=== PATIENT | female | born 1945 | race Caucasian/White ===

== ENCOUNTER 2017-07-04 16:49 | Inpatient (IN) | payer MEDICARE ==
[~2017-07-04] VITALS: Ht 162.6 cm; Wt 65.9 kg
[~2017-07-04 16:49] MED LIST: ADV50250 IH; ALB0.5UD IH; ALBU8.5H8 INH; PANT-47 PO; PROP10TA10 PO
[2017-07-04 17:34] LABS: BASOPHILS # (AUTO) 0.1 X10'3 (0-0.2); BASOPHILS % (AUTO) 0.6 % (0-1); EOSINOPHILS % (AUTO) 0.3 % (0-6); HEMATOCRIT 22.4 % (35.0-45.0); HEMOGLOBIN 7.5 g/dl (12.0-16.0); LYMPHOCYTES # (AUTO) 2.3 X10'3 (1.1-4.8); LYMPHOCYTES % (AUTO) 21.8 % (21-51); MEAN CORPUSCULAR HEMOGLOBIN 29.5 PG (27.0-31.0); MEAN CORPUSCULAR HGB CONC 33.6 % (33.0-36.5); MEAN CORPUSCULAR VOLUME 87.9 FL (78-98); MONOCYTES # (AUTO) 0.4 X10'3 (0-0.9); MONOCYTES % (AUTO) 4.1 % (2-12); NEUTROPHILS # (AUTO) 7.6 X10'3 (1.8-7.7); NEUTROPHILS % (AUTO) 73.2 % (42-75); PLATELET COUNT 301 X10'3 (140-440); RED BLOOD COUNT 2.55 X10'6 (4.20-5.60); RED CELL DISTRIBUTION WIDTH 15.6 % (11.5-14.5); WHITE BLOOD COUNT 10.4 X10'3 (4.5-11.0)
[2017-07-04 17:45] LABS: PARTIAL THROMBOPLASTIN TIME 22 SECONDS (22-32); PROTHROMBIN TIME 10.1 SECONDS (9.0-12.0)
[2017-07-04 18:01] LABS: ALANINE AMINOTRANSFERASE 25 U/L (12-78); ALBUMIN 3.1 G/DL (3.4-5.0); ALKALINE PHOSPHATASE 52 IU/L (46-116); ANION GAP 7 (8-16); ASPARTATE AMINO TRANSFERASE 19 U/L (10-37); BILIRUBIN,TOTAL 0.3 MG/DL (0.1-1.0); BLOOD UREA NITROGEN 26 MG/DL (7-18); BUN/CREATININE RATIO 35.1 (6.6-38.0); CALCIUM 7.8 MG/DL (8.5-10.1); CHLORIDE 109 MMOL/L (99-107); CREATININE 0.74 MG/DL (0.40-0.90); GLUCOSE 118 MG/DL (70-104); SODIUM 142 MMOL/L (135-145); TOTAL CARBON DIOXIDE 26.3 MMOL/L (24-32); TOTAL PROTEIN 6.2 G/DL (6.4-8.2); eGFR 78 ML/MIN
[2017-07-04] MEDS ORDERED: pantoprazole IV 80 MG in normal saline 100ml IV soln 100 ML IV ONE (20:55)
[2017-07-04] MEDS ORDERED: ondansetron/PF 4mg/2ml inj IV ONE (20:55)
[2017-07-04] MEDS ORDERED: octreotide 100mcg/1 ml ampule IV ONE (20:55)
[2017-07-04] MEDS ORDERED: temazepam 15mg capsule PO PRN (21:00)
[2017-07-04] MEDS ORDERED: pantoprazole 40 MG vial IV ONE (21:00)
[2017-07-04] MEDS: pantoprazole 40MG/NS 100ML BAG 100 ML IV SCH (21:12)
[2017-07-04] MEDS: normal saline 1000ml 1,000 ML IV SCH (22:39)
[2017-07-04] MEDS ORDERED: ondansetron/PF 4mg/2ml inj IV PRN (22:40)
[2017-07-04] MEDS ORDERED: magnesium hydroxide 30ml (MOM) UD suspension PO PRN (22:40)
[2017-07-04] MEDS ORDERED: magnesium 4gm in 100ml NS 100 ML IV PRN (22:40)
[2017-07-04] MEDS ORDERED: magnesium Cl slow-release 64mg tablet PO PRN (22:40)
[2017-07-04] MEDS ORDERED: potassium Cl 40MEQ/NS 500ml 500 ML IV PRN ×2 (22:40)
[2017-07-04] MEDS ORDERED: acetaminophen 325mg tablet PO PRN (22:40)
[2017-07-04] MEDS ORDERED: mag hydrox/Alum hydrox/simeth 30ml oral suspension PO PRN (22:40)
[2017-07-04] MEDS ORDERED: magnesium 2GM in 50ml NS 50 ML IV PRN (22:40)
[2017-07-04] MEDS ORDERED: potassium Cl 20 mEq SR tablet PO PRN ×2 (22:40)
[2017-07-04] MEDS ORDERED: HYDROmorphone inj. 0.5 MG/0.5 ML DISP.SYRIN IV PRN ×2 (22:40)
[2017-07-04 22:53] VITALS: BP 124/60
[2017-07-04 23:08] VITALS: BP 119/64
[2017-07-05] VITALS (11 sets, daily range): BP systolic 116–145; BP diastolic 56–77
[2017-07-05] MEDS: pantoprazole 40MG/NS 100ML BAG 100 ML IV SCH ×5 (02:27→21:00)
[2017-07-05 05:00] LABS: BASOPHILS % (AUTO) 0.6 % (0-1); EOSINOPHILS # (AUTO) 0.2 X10'3 (0-0.9); EOSINOPHILS % (AUTO) 2.3 % (0-6); HEMATOCRIT 23.8 % (35.0-45.0); HEMOGLOBIN 8.2 g/dl (12.0-16.0); LYMPHOCYTES # (AUTO) 2.2 X10'3 (1.1-4.8); LYMPHOCYTES % (AUTO) 34.6 % (21-51); MEAN CORPUSCULAR HEMOGLOBIN 30.1 PG (27.0-31.0); MEAN CORPUSCULAR HGB CONC 34.3 % (33.0-36.5); MEAN CORPUSCULAR VOLUME 87.8 FL (78-98); MEAN PLATELET VOLUME 7.1 FL (7.4-10.4); MONOCYTES # (AUTO) 0.5 X10'3 (0-0.9); MONOCYTES % (AUTO) 8.1 % (2-12); NEUTROPHILS # (AUTO) 3.5 X10'3 (1.8-7.7); NEUTROPHILS % (AUTO) 54.4 % (42-75); PLATELET COUNT 222 X10'3 (140-440); RED BLOOD COUNT 2.71 X10'6 (4.20-5.60); WHITE BLOOD COUNT 6.5 X10'3 (4.5-11.0)
[2017-07-05 05:20] LABS: ALANINE AMINOTRANSFERASE 21 U/L (12-78); ALBUMIN 2.8 G/DL (3.4-5.0); ALKALINE PHOSPHATASE 50 IU/L (46-116); ANION GAP 9 (8-16); ASPARTATE AMINO TRANSFERASE 18 U/L (10-37); BILIRUBIN,TOTAL 0.6 MG/DL (0.1-1.0); BLOOD UREA NITROGEN 18 MG/DL (7-18); BUN/CREATININE RATIO 22.2 (6.6-38.0); CALCIUM 7.7 MG/DL (8.5-10.1); CHLORIDE 109 MMOL/L (99-107); CREATININE 0.81 MG/DL (0.40-0.90); GLUCOSE 101 MG/DL (70-104); MAGNESIUM 1.9 MG/DL (1.5-2.4); POTASSIUM 4.3 MMOL/L (3.5-5.1); SODIUM 144 MMOL/L (135-145); TOTAL PROTEIN 5.6 G/DL (6.4-8.2); eGFR 70 ML/MIN
[2017-07-05] MEDS: albuterol 2.5 MG/3 ML nebule NEB PRN (07:29)
[2017-07-05] MEDS: propranolol 10mg tablet PO SCH ×4 (08:00→20:06)
[2017-07-05] MEDS: K and/or MAG REPLACEMENT MC SCH (08:47)
[2017-07-05 09:11] LABS: D-DIMER 0.99 MG/L FEU (0-0.50)
[2017-07-05 09:14] LABS: C-REACTIVE PROTEIN 0.15 MG/DL (0.0-0.5); PHOSPHORUS 2.9 MG/DL (2.3-4.5)
[2017-07-05] MEDS: normal saline 1000ml 1,000 ML IV SCH ×2 (09:40→16:27)
[2017-07-05] MEDS ORDERED: MIDAZolam 5mg/ml 2ml vial ONE (13:46)
[2017-07-05] MEDS ORDERED: LIDOcaine Viscous 15ml cup ONE (13:46)
[2017-07-05] MEDS ORDERED: fentaNYL/PF 50MCG/1 ML 2ML syringe ONE (13:46)
[2017-07-05] MEDS: ipratropium/albuterol 3ml nebule NEB PRN (16:15)
[2017-07-05] MEDS: pantoprazole 40mg Tablet.DR PO SCH (20:06)
[2017-07-06] VITALS (13 sets, daily range): BP systolic 120–144; BP diastolic 52–63
[2017-07-06] MEDS: pantoprazole 40MG/NS 100ML BAG 100 ML IV SCH ×2 (00:13→06:00)
[2017-07-06] MEDS: ipratropium/albuterol 3ml nebule NEB PRN ×2 (03:54→09:53)
[2017-07-06] MEDS: normal saline 1000ml 1,000 ML IV SCH ×2 (04:33→14:39)
[2017-07-06 05:43] LABS: ALANINE AMINOTRANSFERASE 21 U/L (12-78); ALBUMIN 2.7 G/DL (3.4-5.0); ALKALINE PHOSPHATASE 49 IU/L (46-116); ANION GAP 6 (8-16); ASPARTATE AMINO TRANSFERASE 20 U/L (10-37); BILIRUBIN,TOTAL 0.4 MG/DL (0.1-1.0); BLOOD UREA NITROGEN 11 MG/DL (7-18); BUN/CREATININE RATIO 16.2 (6.6-38.0); CALCIUM 8.1 MG/DL (8.5-10.1); CHLORIDE 109 MMOL/L (99-107); CREATININE 0.68 MG/DL (0.40-0.90); GLUCOSE 88 MG/DL (70-104); MAGNESIUM 1.8 MG/DL (1.5-2.4); POTASSIUM 4.1 MMOL/L (3.5-5.1); SODIUM 145 MMOL/L (135-145); TOTAL CARBON DIOXIDE 30.2 MMOL/L (24-32); TOTAL PROTEIN 5.4 G/DL (6.4-8.2); eGFR 86 ML/MIN
[2017-07-06 05:51] LABS: BASOPHILS # (AUTO) 0.1 X10'3 (0-0.2); BASOPHILS % (AUTO) 0.7 % (0-1); EOSINOPHILS # (AUTO) 0.2 X10'3 (0-0.9); EOSINOPHILS % (AUTO) 2.4 % (0-6); HEMATOCRIT 23.4 % (35.0-45.0); HEMOGLOBIN 7.9 g/dl (12.0-16.0); LYMPHOCYTES # (AUTO) 1.9 X10'3 (1.1-4.8); LYMPHOCYTES % (AUTO) 23.9 % (21-51); MEAN CORPUSCULAR HEMOGLOBIN 29.9 PG (27.0-31.0); MEAN CORPUSCULAR HGB CONC 33.7 % (33.0-36.5); MEAN CORPUSCULAR VOLUME 88.7 FL (78-98); MEAN PLATELET VOLUME 7.2 FL (7.4-10.4); MONOCYTES # (AUTO) 0.5 X10'3 (0-0.9); MONOCYTES % (AUTO) 6.3 % (2-12); NEUTROPHILS # (AUTO) 5.3 X10'3 (1.8-7.7); NEUTROPHILS % (AUTO) 66.7 % (42-75); PLATELET COUNT 251 X10'3 (140-440); RED BLOOD COUNT 2.64 X10'6 (4.20-5.60); RED CELL DISTRIBUTION WIDTH 15.1 % (11.5-14.5)
[2017-07-06] MEDS: K and/or MAG REPLACEMENT MC SCH (08:00)
[2017-07-06] MEDS: propranolol 10mg tablet PO SCH ×4 (08:43→20:03)
[2017-07-06] MEDS: pantoprazole 40mg Tablet.DR PO SCH ×2 (08:43→20:03)
[2017-07-06] MEDS: albuterol 2.5 MG/3 ML nebule NEB PRN (17:48)
[2017-07-07 00:23] VITALS: BP 154/74
[2017-07-07] MEDS: normal saline 1000ml 1,000 ML IV SCH ×2 (00:39→05:12)
[2017-07-07 05:36] LABS: BASOPHILS # (AUTO) 0.1 X10'3 (0-0.2); BASOPHILS % (AUTO) 0.9 % (0-1); EOSINOPHILS # (AUTO) 0.3 X10'3 (0-0.9); EOSINOPHILS % (AUTO) 3.4 % (0-6); HEMATOCRIT 31.5 % (35.0-45.0); HEMOGLOBIN 10.7 g/dl (12.0-16.0); LYMPHOCYTES # (AUTO) 2.1 X10'3 (1.1-4.8); LYMPHOCYTES % (AUTO) 25.7 % (21-51); MEAN CORPUSCULAR HEMOGLOBIN 28.8 PG (27.0-31.0); MEAN CORPUSCULAR VOLUME 84.8 FL (78-98); MONOCYTES # (AUTO) 0.7 X10'3 (0-0.9); MONOCYTES % (AUTO) 8.7 % (2-12); NEUTROPHILS # (AUTO) 5.1 X10'3 (1.8-7.7); NEUTROPHILS % (AUTO) 61.3 % (42-75); PLATELET COUNT 273 X10'3 (140-440); RED BLOOD COUNT 3.72 X10'6 (4.20-5.60); RED CELL DISTRIBUTION WIDTH 19.9 % (11.5-14.5); WHITE BLOOD COUNT 8.4 X10'3 (4.5-11.0)
[2017-07-07 05:56] LABS: ALANINE AMINOTRANSFERASE 23 U/L (12-78); ALBUMIN 2.9 G/DL (3.4-5.0); ALBUMIN/GLOBULIN RATIO 0.9 (1.1-1.5); ALKALINE PHOSPHATASE 55 IU/L (46-116); ANION GAP 8 (8-16); ASPARTATE AMINO TRANSFERASE 19 U/L (10-37); BILIRUBIN,TOTAL 0.4 MG/DL (0.1-1.0); BLOOD UREA NITROGEN 8 MG/DL (7-18); BUN/CREATININE RATIO 11.3 (6.6-38.0); CALCIUM 8.2 MG/DL (8.5-10.1); CHLORIDE 108 MMOL/L (99-107); CREATININE 0.71 MG/DL (0.40-0.90); GLUCOSE 101 MG/DL (70-104); MAGNESIUM 1.9 MG/DL (1.5-2.4); POTASSIUM 3.9 MMOL/L (3.5-5.1); SODIUM 146 MMOL/L (135-145); TOTAL CARBON DIOXIDE 29.6 MMOL/L (24-32); eGFR 82 ML/MIN
[2017-07-07 07:20] VITALS: BP 167/80
[2017-07-07] MEDS: K and/or MAG REPLACEMENT MC SCH (08:00)
[2017-07-07] MEDS: ipratropium/albuterol 3ml nebule NEB PRN (08:08)
[2017-07-07] MEDS: pantoprazole 40mg Tablet.DR PO SCH (09:43)
[2017-07-07] MEDS: propranolol 10mg tablet PO SCH ×2 (09:43→13:42)
[2017-07-07 11:28] VITALS: BP 126/67
== END 2017-07-07 16:13 | disposition home or self-care (01) | DRG 378 ==
LOC: ER 16:49 → ED HOLD 22:39 → EDBEDREQ 07-05 13:23 → MED 3N 07-05 14:39
PROVIDERS: ADMIT Internal Medicine; ATTEND Family Medicine
PROC: 30233N1 Transfusion of Nonautologous Red Blood Cells into Peripheral Vein, Percutaneous Approach (ICD-10-PCS; 2017-07-04)
PROC: 0DB98ZX Excision of Duodenum, Via Natural or Artificial Opening Endoscopic, Diagnostic (ICD-10-PCS; principal; 2017-07-05)
DX: K29.71 Gastritis, unspecified, with bleeding (principal); E44.0 Moderate protein-calorie malnutrition; E83.52 Hypercalcemia; J44.9 Chronic obstructive pulmonary disease, unspecified; D50.0 Iron deficiency anemia secondary to blood loss (chronic); E86.1 Hypovolemia; F17.210 Nicotine dependence, cigarettes, uncomplicated; I10 Essential (primary) hypertension; K31.89 Other diseases of stomach and duodenum; R55 Syncope and collapse; K21.9 Gastro-esophageal reflux disease without esophagitis; K44.9 Diaphragmatic hernia without obstruction or gangrene; N28.9 Disorder of kidney and ureter, unspecified; R19.5 Other fecal abnormalities; Z88.6 Allergy status to analgesic agent; Z91.041 Radiographic dye allergy status; Z88.5 Allergy status to narcotic agent; Z88.0 Allergy status to penicillin; Z91.018 Allergy to other foods; Z71.6 Tobacco abuse counseling; Z68.24 Body mass index [BMI] 24.0-24.9, adult
CPT/HCPCS: 36415; 43239; 70450; 71045; 74176; 80053; 83605; 83690; 83735; 84100; 84145; 84484; 85025; 85379; 85610; 85651; 85730; 86140; 86885; 86900; 86901; 86920; 87070; 88305; 93005; 94640; 94760; 96375; 97110; 97116; 97161; 97530; 99285; A4620; C9113; G0500; J2250; J2354; J2405; J3010; J7030; P9016

== ENCOUNTER 2018-11-13 13:00 | Emergency (ER) | payer MEDICARE ==
[~2018-11-13] VITALS: Ht 160 cm; Wt 63.6 kg
[~2018-11-13 13:00] MED LIST changes: -ADV50250 IH; -ALB0.5UD IH; -ALBU8.5H8 INH; +CETI-194 PO; +FERR324T4 PO; -PANT-47 PO; +PANT40TA4 PO
[2018-11-13 13:25] VITALS: BP 123/70
[2018-11-13 13:41] LABS: BASOPHILS # (AUTO) 0.1 X10'3 (0-0.2); BASOPHILS % (AUTO) 1.8 % (0-1); EOSINOPHILS # (AUTO) 0.3 X10'3 (0-0.9); EOSINOPHILS % (AUTO) 4.3 % (0-6); HEMATOCRIT 27.6 % (35.0-45.0); HEMOGLOBIN 9.4 g/dl (12.0-16.0); LYMPHOCYTES # (AUTO) 2.3 X10'3 (1.1-4.8); LYMPHOCYTES % (AUTO) 29.4 % (21-51); MEAN CORPUSCULAR HEMOGLOBIN 30.1 PG (27.0-31.0); MEAN CORPUSCULAR HGB CONC 34.1 g/dL (33.0-36.5); MEAN CORPUSCULAR VOLUME 88.3 FL (78-98); MEAN PLATELET VOLUME 6.4 FL (7.4-10.4); MONOCYTES # (AUTO) 0.5 X10'3 (0-0.9); MONOCYTES % (AUTO) 6.1 % (2-12); NEUTROPHILS # (AUTO) 4.5 X10'3 (1.8-7.7); NEUTROPHILS % (AUTO) 58.4 % (42-75); PLATELET COUNT 424 X10'3 (140-440); RED BLOOD COUNT 3.12 X10'6 (4.20-5.60); WHITE BLOOD COUNT 7.7 X10'3 (4.5-11.0)
[2018-11-13 13:55] LABS: ALANINE AMINOTRANSFERASE 21 U/L (12-78); ALBUMIN 3.4 G/DL (3.4-5.0); ALKALINE PHOSPHATASE 55 IU/L (46-116); ANION GAP 6 (8-16); ASPARTATE AMINO TRANSFERASE 15 U/L (10-37); BILIRUBIN,TOTAL 0.2 MG/DL (0.1-1.0); BLOOD UREA NITROGEN 12 MG/DL (7-18); BUN/CREATININE RATIO 16.9 (6.6-38.0); CALCIUM 8.8 MG/DL (8.5-10.1); CHLORIDE 103 MMOL/L (99-107); CREATININE 0.71 MG/DL (0.40-0.90); GLUCOSE 96 MG/DL (70-104); PARTIAL THROMBOPLASTIN TIME 25 SECONDS (22-32); POTASSIUM 4.1 MMOL/L (3.5-5.1); SODIUM 136 MMOL/L (135-145); TOTAL CARBON DIOXIDE 26.9 MMOL/L (24-32); TOTAL PROTEIN 6.9 G/DL (6.4-8.2); eGFR 81 ML/MIN
--- NOTE | 2018-11-13 15:21 | NUR ---
dr ramirez in room family at bedside.
== END 2018-11-13 15:51 | disposition home or self-care (01) ==
LOC: ER 13:00
DX: R06.02 Shortness of breath (principal); D64.9 Anemia, unspecified; R53.1 Weakness; I10 Essential (primary) hypertension; J44.9 Chronic obstructive pulmonary disease, unspecified; Z88.8 Allergy status to other drugs, medicaments and biological substances; Z88.6 Allergy status to analgesic agent; Z88.0 Allergy status to penicillin; Z88.5 Allergy status to narcotic agent; Z79.2 Long term (current) use of antibiotics; Z79.899 Other long term (current) drug therapy
CPT/HCPCS: 36415; 71045; 80053; 84484; 85025; 85610; 85730; 93005; 99284

== ENCOUNTER 2018-11-15 23:17 | Inpatient (IN) | payer MEDICARE ==
[~2018-11-15] VITALS: Ht 157.5 cm; Wt 63.0 kg
[2018-11-15 23:55] LABS: ALANINE AMINOTRANSFERASE 22 U/L (12-78); ALBUMIN 3.1 G/DL (3.4-5.0); ALKALINE PHOSPHATASE 47 IU/L (46-116); ANION GAP 7 (8-16); ASPARTATE AMINO TRANSFERASE 17 U/L (10-37); BILIRUBIN,TOTAL 0.4 MG/DL (0.1-1.0); BLOOD UREA NITROGEN 41 MG/DL (7-18); CALCIUM 8.6 MG/DL (8.5-10.1); CHLORIDE 104 MMOL/L (99-107); CREATININE 0.82 MG/DL (0.40-0.90); GLUCOSE 149 MG/DL (70-104); POTASSIUM 4.2 MMOL/L (3.5-5.1); SODIUM 139 MMOL/L (135-145); TOTAL CARBON DIOXIDE 28.1 MMOL/L (24-32); TOTAL PROTEIN 6.2 G/DL (6.4-8.2); eGFR 69 ML/MIN
[2018-11-16] VITALS (19 sets, daily range): BP systolic 99–143; BP diastolic 49–67
[2018-11-16] LABS: PARTIAL THROMBOPLASTIN TIME 21 SECONDS (22-32)
[2018-11-16 00:08] LABS: BASOPHILS # (AUTO) 0.1 X10'3 (0-0.2); BASOPHILS % (AUTO) 0.6 % (0-1); EOSINOPHILS # (AUTO) 0.2 X10'3 (0-0.9); EOSINOPHILS % (AUTO) 1.1 % (0-6); LYMPHOCYTES # (AUTO) 1.6 X10'3 (1.1-4.8); LYMPHOCYTES % (AUTO) 10.3 % (21-51); MEAN CORPUSCULAR HEMOGLOBIN 29.5 PG (27.0-31.0); MEAN CORPUSCULAR HGB CONC 33.3 g/dL (33.0-36.5); MEAN CORPUSCULAR VOLUME 88.7 FL (78-98); MEAN PLATELET VOLUME 6.5 FL (7.4-10.4); MONOCYTES # (AUTO) 0.6 X10'3 (0-0.9); MONOCYTES % (AUTO) 3.8 % (2-12); NEUTROPHILS # (AUTO) 13.1 X10'3 (1.8-7.7); NEUTROPHILS % (AUTO) 84.2 % (42-75); PLATELET COUNT 342 X10'3 (140-440); RED BLOOD COUNT 2.17 X10'6 (4.20-5.60); WHITE BLOOD COUNT 15.5 X10'3 (4.5-11.0)
[2018-11-16 00:10] LABS: HEMATOCRIT 19.2 % (35.0-45.0); HEMOGLOBIN 6.4 g/dl (12.0-16.0)
[2018-11-16] MEDS ORDERED: mag hydrox/Alum hydrox/simeth 30ml oral suspension PO PRN (00:45)
[2018-11-16] MEDS ORDERED: magnesium hydroxide 30ml (MOM) UD suspension PO PRN (00:45)
[2018-11-16] MEDS ORDERED: ondansetron/PF 4mg/2ml inj IV PRN (00:45)
[2018-11-16] MEDS ORDERED: pantoprazole 40 MG vial IV ONE (00:45)
[2018-11-16] MEDS ORDERED: acetaminophen 325mg tablet PO PRN ×2 (00:45)
[2018-11-16] MEDS ORDERED: ESOMEPRAZOLE 40 MG VIAL IV ONE (00:55)
--- NOTE | 2018-11-16 02:30 | NUR ---
Patient in room PCU 3013. I have received report from clemente landaverde and had the opportunity to ask questions and assume patient care.
[2018-11-16] MEDS ORDERED: albuterol 2.5 MG/3 ML nebule ONE (03:44)
[2018-11-16] MEDS: albuterol 2.5 MG/3 ML nebule NEB PRN ×2 (03:47→13:35)
--- NOTE | 2018-11-16 04:00 | NUR ---
Contacted md about npo status and no fluids ordered. Blood to be given. No new orders.
--- NOTE | 2018-11-16 06:30 | NUR ---
Patient in room PCU 3013. I have received report from SHIRA Llanos and had the opportunity to ask questions and assume patient care.
[2018-11-16] MEDS ORDERED: potassium Cl 20 mEq SR tablet PO PRN ×2 (09:35)
[2018-11-16] MEDS ORDERED: potassium CL 10mEq/100ml bag 100 ML IV PRN (09:35)
[2018-11-16] MEDS ORDERED: magnesium Cl slow-release 64mg tablet PO PRN (09:35)
[2018-11-16] MEDS ORDERED: magnesium 4gm in 100ml NS 100 ML IV PRN (09:35)
[2018-11-16] MEDS: ESOMEPRAZOLE 40 MG VIAL IV SCH ×2 (11:36→20:31)
[2018-11-16 13:13] LABS: URINE AMPHETAMINE SCREEN NEGATIVE (Neg); URINE BARBITUATE SCREEN NEGATIVE (Neg); URINE BENZODIAZEPINES SCREEN NEGATIVE (Neg); URINE CANNABINOID SCREEN NEGATIVE (Neg); URINE COCAINE SCREEN NEGATIVE (Neg); URINE METHADONE SCREEN NEGATIVE (Neg); URINE OPIATE SCREEN NEGATIVE (Neg); URINE PHENCYCLIDINE SCREEN NEGATIVE (Neg)
[2018-11-16] MEDS ORDERED: MIDAZolam 5mg/5ml vial ONE (14:19)
[2018-11-16] MEDS ORDERED: fentaNYL/PF 50MCG/1 ML 2ML syringe ONE (14:19)
[2018-11-16] MEDS ORDERED: LIDOcaine Viscous 15ml cup ONE (14:19)
[2018-11-16 15:47] LABS: HEMATOCRIT 25.2 % (35.0-45.0); HEMOGLOBIN 8.6 g/dl (12.0-16.0); MEAN CORPUSCULAR HEMOGLOBIN 30.1 PG (27.0-31.0); MEAN CORPUSCULAR HGB CONC 34.3 g/dL (33.0-36.5); MEAN CORPUSCULAR VOLUME 87.7 FL (78-98); MEAN PLATELET VOLUME 6.7 FL (7.4-10.4); PLATELET COUNT 261 X10'3 (140-440); RED BLOOD COUNT 2.87 X10'6 (4.20-5.60); RED CELL DISTRIBUTION WIDTH 15.1 % (11.5-14.5); WHITE BLOOD COUNT 9.7 X10'3 (4.5-11.0)
--- NOTE | 2018-11-16 16:51 | NUR ---
Sent to Dr Matute PAGER ID: [phone] MESSAGE: RE: Courtney Powell [id number]. Pt would like to know if she can advance her diet, and also if she can graduate from bedrest to use beside commode. -Eloies [phone]
--- NOTE | 2018-11-16 18:48 | NUR ---
Problems reprioritized. Patient report given, questions answered & plan of care reviewed with SHIRA Currie.
--- NOTE | 2018-11-16 18:50 | NUR ---
Patient in room PCU 3013. I have received report from SHIRA Calderon and had the opportunity to ask questions and assume patient care. Patient was sleeping comfortably at reports, she was easily awoken and answered all questions appropriately. I will continue to monitor.
[2018-11-16 22:27] LABS: HEMATOCRIT 23.7 % (35.0-45.0); HEMOGLOBIN 8.3 g/dl (12.0-16.0); MEAN CORPUSCULAR HEMOGLOBIN 30.7 PG (27.0-31.0); MEAN CORPUSCULAR HGB CONC 35.1 g/dL (33.0-36.5); MEAN CORPUSCULAR VOLUME 87.7 FL (78-98); MEAN PLATELET VOLUME 6.5 FL (7.4-10.4); PLATELET COUNT 257 X10'3 (140-440); RED CELL DISTRIBUTION WIDTH 15.6 % (11.5-14.5); WHITE BLOOD COUNT 8.9 X10'3 (4.5-11.0)
[2018-11-17 02:00] VITALS: BP_SYST 106; BP_SYST 86; BP_DIAS 33; BP_DIAS 51
[2018-11-17] MEDS: albuterol 2.5 MG/3 ML nebule NEB PRN ×2 (03:15→15:19)
--- NOTE | 2018-11-17 06:08 | NUR ---
Problems reprioritized. Patient report given, questions answered & plan of care reviewed with SHIRA Navas
--- NOTE | 2018-11-17 06:30 | NUR ---
Patient in room PCU 3013. I have received report from SHIRA Currie and had the opportunity to ask questions and assume patient care.
[2018-11-17 06:54] LABS: BASOPHILS # (AUTO) 0.1 X10'3 (0-0.2); BASOPHILS % (AUTO) 0.7 % (0-1); EOSINOPHILS # (AUTO) 0.2 X10'3 (0-0.9); EOSINOPHILS % (AUTO) 2.4 % (0-6); HEMATOCRIT 23.9 % (35.0-45.0); HEMOGLOBIN 8.1 g/dl (12.0-16.0); LYMPHOCYTES # (AUTO) 2.1 X10'3 (1.1-4.8); LYMPHOCYTES % (AUTO) 22.3 % (21-51); MEAN CORPUSCULAR HEMOGLOBIN 30.3 PG (27.0-31.0); MEAN CORPUSCULAR VOLUME 89.1 FL (78-98); MEAN PLATELET VOLUME 6.8 FL (7.4-10.4); MONOCYTES # (AUTO) 0.7 X10'3 (0-0.9); MONOCYTES % (AUTO) 7.3 % (2-12); NEUTROPHILS # (AUTO) 6.2 X10'3 (1.8-7.7); NEUTROPHILS % (AUTO) 67.3 % (42-75); PLATELET COUNT 259 X10'3 (140-440); RED BLOOD COUNT 2.69 X10'6 (4.20-5.60); RED CELL DISTRIBUTION WIDTH 15.7 % (11.5-14.5); WHITE BLOOD COUNT 9.3 X10'3 (4.5-11.0)
[2018-11-17 06:55] LABS: ALBUMIN 2.7 G/DL (3.4-5.0); ANION GAP 4 (8-16); BLOOD UREA NITROGEN 21 MG/DL (7-18); BUN/CREATININE RATIO 28.8 (6.6-38.0); CALCIUM 8.5 MG/DL (8.5-10.1); CHLORIDE 110 MMOL/L (99-107); CREATININE 0.73 MG/DL (0.40-0.90); GLUCOSE 90 MG/DL (70-104); PHOSPHORUS 3.4 MG/DL (2.3-4.5); SODIUM 144 MMOL/L (135-145); TOTAL CARBON DIOXIDE 30.2 MMOL/L (24-32); eGFR 79 ML/MIN
[2018-11-17 07:00] VITALS: BP 116/61
[2018-11-17] MEDS: ESOMEPRAZOLE 40 MG VIAL IV SCH ×2 (07:58→19:43)
--- NOTE | 2018-11-17 10:00 | NUR ---
Reviewed meds on med rec with SHIRA Diaz. Meds were not "reported," and there are no further actions to be taken by RN. Dr Matute informed.
[2018-11-17 11:00] VITALS: BP 111/63
[2018-11-17] MEDS ORDERED: ALBU8.5H8 INH (11:12)
[2018-11-17] MEDS ORDERED: PROP10TA10 PO (11:13)
[2018-11-17] MEDS ORDERED: FLUT1DIS INH (11:14)
[2018-11-17] MEDS ORDERED: ALB0.5UD INH (11:14)
[2018-11-17] MEDS ORDERED: FERR324T4 PO (11:15)
--- NOTE | 2018-11-17 14:16 | NUR ---
Sent to Dr Matute PAGER ID: [phone] MESSAGE: RE: Andre Courtney [id number]. Pt experiencing circumoral numbness and "dizziness that starts below her eyes and washes over her." -Eloise [phone]
--- NOTE | 2018-11-17 14:51 | NUR ---
Sent to Dr Matute PAGER ID: [phone] MESSAGE: RE: Courtney Powell [id number]. Pt gets extremely claustrophobic, is nervous about MRI. -Eloise [phone]
[2018-11-17 15:00] VITALS: BP 112/64
[2018-11-17] MEDS ORDERED: LORazepam 2 mg/ml vial IV ONE (15:20)
--- NOTE | 2018-11-17 17:29 | NUR ---
Sent to Dr Matute PAGER ID: [phone] MESSAGE: RE: Courtney Powell [id number]. Pt and family have questions and concerns. Pt states she has had black stools, and when mixed with urine she can see red blood coming off stool. - Eloise [phone]
--- NOTE | 2018-11-17 18:35 | NUR ---
Patient in room PCU 3013. I have received report from JEREMI SILVA and had the opportunity to ask questions and assume patient care.
--- NOTE | 2018-11-17 18:49 | NUR ---
Problems reprioritized. Patient report given, questions answered & plan of care reviewed with SHIRA Goff.
[2018-11-17 19:00] VITALS: BP 158/68
[2018-11-17 23:00] VITALS: BP 93/42
[2018-11-18] VITALS (20 sets, daily range): BP systolic 60–136; BP diastolic 30–73
[2018-11-18 01:24] LABS: BASOPHILS # (AUTO) 0.1 X10'3 (0-0.2); BASOPHILS % (AUTO) 0.7 % (0-1); EOSINOPHILS # (AUTO) 0.2 X10'3 (0-0.9); EOSINOPHILS % (AUTO) 1.7 % (0-6); LYMPHOCYTES # (AUTO) 2.1 X10'3 (1.1-4.8); MEAN CORPUSCULAR HEMOGLOBIN 30.6 PG (27.0-31.0); MEAN CORPUSCULAR HGB CONC 34.5 g/dL (33.0-36.5); MEAN CORPUSCULAR VOLUME 88.7 FL (78-98); MEAN PLATELET VOLUME 6.7 FL (7.4-10.4); MONOCYTES # (AUTO) 0.6 X10'3 (0-0.9); MONOCYTES % (AUTO) 5.9 % (2-12); NEUTROPHILS # (AUTO) 6.7 X10'3 (1.8-7.7); NEUTROPHILS % (AUTO) 69.7 % (42-75); PLATELET COUNT 233 X10'3 (140-440); RED BLOOD COUNT 2.08 X10'6 (4.20-5.60); RED CELL DISTRIBUTION WIDTH 15.6 % (11.5-14.5); WHITE BLOOD COUNT 9.6 X10'3 (4.5-11.0)
[2018-11-18 01:28] LABS: HEMATOCRIT 18.5 % (35.0-45.0); HEMOGLOBIN 6.4 g/dl (12.0-16.0)
[2018-11-18 01:30] LABS: ALBUMIN 2.4 G/DL (3.4-5.0); ANION GAP 4 (8-16); BLOOD UREA NITROGEN 30 MG/DL (7-18); BUN/CREATININE RATIO 42.3 (6.6-38.0); CHLORIDE 109 MMOL/L (99-107); CREATININE 0.71 MG/DL (0.40-0.90); GLUCOSE 110 MG/DL (70-104); MAGNESIUM 1.8 MG/DL (1.5-2.4); PHOSPHORUS 3.2 MG/DL (2.3-4.5); POTASSIUM 4.1 MMOL/L (3.5-5.1); SODIUM 141 MMOL/L (135-145); TOTAL CARBON DIOXIDE 28.3 MMOL/L (24-32); eGFR 81 ML/MIN
--- NOTE | 2018-11-18 01:33 | NUR ---
NOTIFICATION: PAGED DR LUCAS re: Alexandre KHAN RM 6204C PCU CRITICAL H/H 6.4/18.5 PT IS SYMPTOMATIC PLEASE ADVICE KAILA SILVA EXT [phone]
--- NOTE | 2018-11-18 02:01 | NUR ---
NOTIFICATION: re: Alexandre KHAN RM 3013B PCU CRITICAL H/H 6.4/18.5 PT IS SYMPTOMATIC PLEASE ADVICE KAILA SILVA EXT [phone]
--- NOTE | 2018-11-18 02:55 | NUR ---
New Orders Dr. Bardales 1 unit of blood. Will continue to monitor.
[2018-11-18] MEDS: albuterol 2.5 MG/3 ML nebule NEB PRN (03:00)
--- NOTE | 2018-11-18 04:54 | NUR ---
Rapid Response A rapid response was called on this patient. On arrival to bedside, the patient was dizzy, diaphoretic, and lethargic. Pt BP was 60/30. At five minute interval BP was 107/58. Five minutes later BP was 112/55. A unit of blood was running as ordered. Interventions: Run unit of blood in less than an hour and repeat hemogram after 30 minutes of blood stopping. Rapid response outcome: Pt is being monitored closely. Will notify MD of any changes
--- NOTE | 2018-11-18 06:10 | NUR ---
Problems reprioritized. Patient report given, questions answered & plan of care reviewed with Eloise RN.
[2018-11-18 06:25] LABS: BASOPHILS % (AUTO) 0.3 % (0-1); EOSINOPHILS % (AUTO) 0.4 % (0-6); LYMPHOCYTES # (AUTO) 1.1 X10'3 (1.1-4.8); LYMPHOCYTES % (AUTO) 10.5 % (21-51); MEAN CORPUSCULAR HEMOGLOBIN 30.4 PG (27.0-31.0); MEAN CORPUSCULAR HGB CONC 33.9 g/dL (33.0-36.5); MEAN CORPUSCULAR VOLUME 89.8 FL (78-98); MONOCYTES # (AUTO) 0.5 X10'3 (0-0.9); MONOCYTES % (AUTO) 4.8 % (2-12); NEUTROPHILS # (AUTO) 8.5 X10'3 (1.8-7.7); PLATELET COUNT 209 X10'3 (140-440); RED BLOOD COUNT 2.25 X10'6 (4.20-5.60); RED CELL DISTRIBUTION WIDTH 15.3 % (11.5-14.5); WHITE BLOOD COUNT 10.1 X10'3 (4.5-11.0)
[2018-11-18 06:35] LABS: HEMATOCRIT 20.2 % (35.0-45.0); HEMOGLOBIN 6.9 g/dl (12.0-16.0)
--- NOTE | 2018-11-18 06:57 | NUR ---
Patient in room PCU 3013. I have received report from SHIRA Goff and had the opportunity to ask questions and assume patient care.
[2018-11-18 07:02] LABS: ALBUMIN 2.2 G/DL (3.4-5.0); ANION GAP 8 (8-16); BLOOD UREA NITROGEN 32 MG/DL (7-18); CALCIUM 7.9 MG/DL (8.5-10.1); CHLORIDE 110 MMOL/L (99-107); GLUCOSE 127 MG/DL (70-104); POTASSIUM 4.5 MMOL/L (3.5-5.1); SODIUM 142 MMOL/L (135-145); TOTAL CARBON DIOXIDE 24.5 MMOL/L (24-32); eGFR 71 ML/MIN
[2018-11-18] MEDS: ESOMEPRAZOLE 40 MG VIAL IV SCH ×2 (07:55→20:34)
--- NOTE | 2018-11-18 08:06 | NUR ---
Sent to Dr Matute PAGER ID: [phone] MESSAGE: RE: Courtney Powell [id number]. Critical Lab Value: H/H 6.9/20.2 -Eloise [phone]
--- NOTE | 2018-11-18 09:07 | NUR ---
Sent to Dr Matute PAGER ID: [phone] MESSAGE: RE: Kelsy Powell [id number]. Pt passed large, black, tarry stool. It is separate from urine, in a collection hat; can I please get an order for an occult stool? - Eloise [phone]
[2018-11-18] MEDS ORDERED: albuterol 2.5 MG/3 ML nebule NEB PRN (09:40)
[2018-11-18] MEDS ORDERED: heparin sodium, porcine/PF 100unit/ml 5ML syringe ICATH ONE (12:10)
[2018-11-18] MEDS: propranolol 10mg tablet PO SCH ×5 (13:00→20:35)
[2018-11-18] MEDS: albuterol 2.5 MG/3 ML nebule NEB SCH ×2 (14:00→20:11)
[2018-11-18 15:51] LABS: HEMATOCRIT 25.3 % (35.0-45.0); HEMOGLOBIN 8.4 g/dl (12.0-16.0); MEAN CORPUSCULAR HEMOGLOBIN 30.3 PG (27.0-31.0); MEAN CORPUSCULAR HGB CONC 33.4 g/dL (33.0-36.5); MEAN CORPUSCULAR VOLUME 90.7 FL (78-98); MEAN PLATELET VOLUME 7.1 FL (7.4-10.4); PLATELET COUNT 207 X10'3 (140-440); RED BLOOD COUNT 2.78 X10'6 (4.20-5.60); RED CELL DISTRIBUTION WIDTH 15.1 % (11.5-14.5); WHITE BLOOD COUNT 11.7 X10'3 (4.5-11.0)
--- NOTE | 2018-11-18 17:30 | NUR ---
Pt refused 10mg of her 20mg propanolol. She stated she normally only takes 10mg and she was nervous to take too much due to the issues she's experiencing.
--- NOTE | 2018-11-18 18:15 | NUR ---
Patient in room PCU 3013. I have received report from Eloise SILVA and had the opportunity to ask questions and assume patient care.
--- NOTE | 2018-11-18 18:51 | NUR ---
Problems reprioritized. Patient report given, questions answered & plan of care reviewed with SHIRA Goff.
[2018-11-18] MEDS: budesonide 0.5mg/2ml UD nebule IH SCH (20:11)
[2018-11-18 20:24] LABS: HEMATOCRIT 28.6 % (35.0-45.0); HEMOGLOBIN 9.6 g/dl (12.0-16.0); MEAN CORPUSCULAR HEMOGLOBIN 30.5 PG (27.0-31.0); MEAN CORPUSCULAR HGB CONC 33.6 g/dL (33.0-36.5); MEAN CORPUSCULAR VOLUME 90.6 FL (78-98); PLATELET COUNT 191 X10'3 (140-440); RED BLOOD COUNT 3.16 X10'6 (4.20-5.60); WHITE BLOOD COUNT 15.2 X10'3 (4.5-11.0)
[2018-11-18] MEDS: ferrous sulfate 325mg tablet PO SCH (20:34)
--- NOTE | 2018-11-18 20:36 | NUR ---
Pt refused one tablet of propranolol DT she only takes 10 mg not 20mg
[2018-11-19] MEDS: albuterol 2.5 MG/3 ML nebule NEB SCH ×3 (02:10→14:50)
[2018-11-19 02:14] LABS: BASOPHILS # (AUTO) 0.1 X10'3 (0-0.2); EOSINOPHILS # (AUTO) 0.2 X10'3 (0-0.9); EOSINOPHILS % (AUTO) 1.6 % (0-6); HEMATOCRIT 27.2 % (35.0-45.0); HEMOGLOBIN 9.4 g/dl (12.0-16.0); LYMPHOCYTES # (AUTO) 2.4 X10'3 (1.1-4.8); LYMPHOCYTES % (AUTO) 21.4 % (21-51); MEAN CORPUSCULAR HEMOGLOBIN 31.2 PG (27.0-31.0); MEAN CORPUSCULAR HGB CONC 34.4 g/dL (33.0-36.5); MEAN CORPUSCULAR VOLUME 90.5 FL (78-98); MEAN PLATELET VOLUME 7.1 FL (7.4-10.4); MONOCYTES # (AUTO) 0.9 X10'3 (0-0.9); MONOCYTES % (AUTO) 7.7 % (2-12); NEUTROPHILS # (AUTO) 7.6 X10'3 (1.8-7.7); NEUTROPHILS % (AUTO) 68.3 % (42-75); PLATELET COUNT 182 X10'3 (140-440); WHITE BLOOD COUNT 11.2 X10'3 (4.5-11.0)
--- NOTE | 2018-11-19 06:00 | NUR ---
Patient in room U 3013. I have received report from Shell SILVA and had the opportunity to ask questions and assume patient care. Patient in bed sleeping.
--- NOTE | 2018-11-19 06:30 | NUR ---
Patient in room PCU 3013. I have received report from Shell SILVA and had the opportunity to ask questions and assume patient care. Patient awake in bed with no complaints at this time. No immediate needs. Will continue to monitor.
--- NOTE | 2018-11-19 06:45 | NUR ---
Problems reprioritized. Patient report given, questions answered & plan of care reviewed with Rohan SILVA.
[2018-11-19 07:00] VITALS: BP 99/52
[2018-11-19 07:46] LABS: HEMATOCRIT 28.1 % (35.0-45.0); HEMOGLOBIN 9.5 g/dl (12.0-16.0); MEAN CORPUSCULAR HEMOGLOBIN 30.5 PG (27.0-31.0); MEAN CORPUSCULAR HGB CONC 33.9 g/dL (33.0-36.5); MEAN CORPUSCULAR VOLUME 89.9 FL (78-98); MEAN PLATELET VOLUME 7.3 FL (7.4-10.4); PLATELET COUNT 194 X10'3 (140-440); RED BLOOD COUNT 3.13 X10'6 (4.20-5.60); WHITE BLOOD COUNT 8.7 X10'3 (4.5-11.0)
[2018-11-19] MEDS: ferrous sulfate 325mg tablet PO SCH (08:00)
[2018-11-19] MEDS: propranolol 10mg tablet PO SCH ×3 (08:00→12:44)
[2018-11-19] MEDS: ESOMEPRAZOLE 40 MG VIAL IV SCH (08:00)
[2018-11-19 08:02] LABS: ALBUMIN 2.6 G/DL (3.4-5.0); ANION GAP 6 (8-16); BLOOD UREA NITROGEN 16 MG/DL (7-18); BUN/CREATININE RATIO 24.6 (6.6-38.0); CALCIUM 8.5 MG/DL (8.5-10.1); CHLORIDE 111 MMOL/L (99-107); CREATININE 0.65 MG/DL (0.40-0.90); GLUCOSE 87 MG/DL (70-104); PHOSPHORUS 3.4 MG/DL (2.3-4.5); POTASSIUM 4.2 MMOL/L (3.5-5.1); SODIUM 143 MMOL/L (135-145); TOTAL CARBON DIOXIDE 26.5 MMOL/L (24-32); eGFR 90 ML/MIN
[2018-11-19] MEDS: budesonide 0.5mg/2ml UD nebule IH SCH (10:05)
[2018-11-19 11:00] VITALS: BP 149/50
--- NOTE | 2018-11-19 12:35 | NUR ---
Problems reprioritized. Patient report given, questions answered & plan of care reviewed with Rosalia SILVA from [facility] for a scheduled transfer.
--- NOTE | 2018-11-19 15:30 | NUR ---
VSS, Patient is stable for transfer to [facility] per MD orders, called in report to Rosalia TAN, LISA walters'ed clean dry dressing in place, tele monitor 56 removed and returned, pt was transferred @ 1530 by [employer] w/ 2 staff workers, all belongings taken with patient.
--- NOTE | 2018-11-19 17:29 | NUR ---
[place] documentation: I have reviewed and agree with all interventions, assessments performed and documented by SHIRA Gonzales. [place] Medication Administration: For this medication-pass time frame, all medication were reviewed, dispensed, administered and documented per hospital policy by SHIRA Gonzales.
== END 2018-11-19 15:30 | DRG 377 ==
LOC: ER 23:18 → PCU 3S 11-16 01:34 → CMPBEDREQ 11-17 20:59
PROVIDERS: ADMIT Hospitalist; ATTEND Family Medicine
PROC: 0DJ08ZZ Inspection of Upper Intestinal Tract, Via Natural or Artificial Opening Endoscopic (ICD-10-PCS; principal; 2018-11-16)
PROC: 30233N1 Transfusion of Nonautologous Red Blood Cells into Peripheral Vein, Percutaneous Approach (ICD-10-PCS; 2018-11-16)
PROC: 30233N1 Transfusion of Nonautologous Red Blood Cells into Peripheral Vein, Percutaneous Approach (ICD-10-PCS; 2018-11-18)
PROC: CD171ZZ Planar Nuclear Medicine Imaging of Gastrointestinal Tract using Technetium 99m (Tc-99m) (ICD-10-PCS; 2018-11-18)
DX: K55.21 Angiodysplasia of colon with hemorrhage (principal); G93.41 Metabolic encephalopathy; E44.0 Moderate protein-calorie malnutrition; F41.9 Anxiety disorder, unspecified; K44.9 Diaphragmatic hernia without obstruction or gangrene; D50.0 Iron deficiency anemia secondary to blood loss (chronic); I10 Essential (primary) hypertension; J44.9 Chronic obstructive pulmonary disease, unspecified; F17.200 Nicotine dependence, unspecified, uncomplicated; Z91.041 Radiographic dye allergy status; Z88.6 Allergy status to analgesic agent; Z88.5 Allergy status to narcotic agent; Z88.0 Allergy status to penicillin; Z91.048 Other nonmedicinal substance allergy status; Z68.25 Body mass index [BMI] 25.0-25.9, adult; Q27.33 Arteriovenous malformation of digestive system vessel
CPT/HCPCS: 36415; 43235; 70551; 71045; 78278; 80048; 80053; 80305; 80320; 82948; 83735; 84100; 84484; 85025; 85027; 85610; 85730; 86885; 86900; 86901; 86920; 87081; 93005; 93975; 94640; 94760; 96374; 97110; 97116; 97162; 97530; 99152; 99285; A9560; G0378; J1642; J2060; J2250; J3010; J7040; J7626; P9016

== ENCOUNTER 2019-04-30 04:07 | Inpatient (IN) | payer MEDICARE ==
[2019-04-30] VITALS (21 sets, daily range): BP systolic 93–135; BP diastolic 40–76
[~2019-04-30] VITALS: Ht 160 cm; Wt 65.0 kg
[~2019-04-30 04:07] MED LIST changes: +ALB0.5UD INH; +ALBU8.5H8 INH; -CETI-194 PO; +FLUT1DIS INH; -PANT40TA4 PO
[2019-04-30 04:34] LABS: BASOPHILS # (AUTO) 0.1 X10'3 (0-0.2); BASOPHILS % (AUTO) 0.8 % (0-1); EOSINOPHILS # (AUTO) 0.1 X10'3 (0-0.9); EOSINOPHILS % (AUTO) 1.1 % (0-6); HEMATOCRIT 23.3 % (35.0-45.0); HEMOGLOBIN 7.8 g/dl (12.0-16.0); LYMPHOCYTES # (AUTO) 2.6 X10'3 (1.1-4.8); LYMPHOCYTES % (AUTO) 23.6 % (21-51); MEAN CORPUSCULAR HEMOGLOBIN 29.3 PG (27.0-31.0); MEAN CORPUSCULAR HGB CONC 33.5 g/dL (33.0-36.5); MEAN CORPUSCULAR VOLUME 87.5 FL (78-98); MONOCYTES # (AUTO) 0.6 X10'3 (0-0.9); MONOCYTES % (AUTO) 5.6 % (2-12); NEUTROPHILS # (AUTO) 7.6 X10'3 (1.8-7.7); NEUTROPHILS % (AUTO) 68.9 % (42-75); PLATELET COUNT 239 X10'3 (140-440); RED BLOOD COUNT 2.66 X10'6 (4.20-5.60); RED CELL DISTRIBUTION WIDTH 14.3 % (11.5-14.5)
[2019-04-30] MEDS ORDERED: ondansetron/PF 4mg/2ml inj IV ONE (04:45)
[2019-04-30] MEDS ORDERED: pantoprazole 40 MG vial IV ONE (04:45)
[2019-04-30] MEDS ORDERED: normal saline 1000ML IV soln IVB ONE ×2 (04:45)
[2019-04-30 04:49] LABS: ALANINE AMINOTRANSFERASE 22 U/L (12-78); ALBUMIN 3.1 G/DL (3.4-5.0); ALBUMIN/GLOBULIN RATIO 1.2 (1.1-1.5); ALKALINE PHOSPHATASE 50 IU/L (46-116); ANION GAP 3 (8-16); ASPARTATE AMINO TRANSFERASE 17 U/L (10-37); BILIRUBIN,TOTAL 0.3 MG/DL (0.1-1.0); BLOOD UREA NITROGEN 46 MG/DL (7-18); BUN/CREATININE RATIO 58.2 (6.6-38.0); CALCIUM 9.4 MG/DL (8.5-10.1); CHLORIDE 110 MMOL/L (99-107); CREATININE 0.79 MG/DL (0.40-0.90); GLUCOSE 121 MG/DL (70-104); LIPASE 109 U/L (73-393); POTASSIUM 4.3 MMOL/L (3.5-5.1); SODIUM 143 MMOL/L (135-145); TOTAL CARBON DIOXIDE 29.6 MMOL/L (24-32); TOTAL PROTEIN 5.7 G/DL (6.4-8.2); eGFR 72 ML/MIN
[2019-04-30 05:20] LABS: PARTIAL THROMBOPLASTIN TIME 20 SECONDS (22-32)
[2019-04-30] MEDS ORDERED: magnesium 2GM in 50ml NS 50 ML IV PRN (07:45)
[2019-04-30] MEDS ORDERED: ondansetron/PF 4mg/2ml inj IV PRN (07:45)
[2019-04-30] MEDS ORDERED: magnesium Cl slow-release 64mg tablet PO PRN (07:45)
[2019-04-30] MEDS ORDERED: magnesium 4gm in 100ml NS 100 ML IV PRN (07:45)
[2019-04-30] MEDS ORDERED: potassium Cl 20 mEq SR tablet PO PRN ×2 (07:45)
[2019-04-30] MEDS ORDERED: potassium CL 10mEq/100ml bag 100 ML IV PRN ×2 (07:45)
[2019-04-30] MEDS: K and/or MAG REPLACEMENT MC SCH ×2 (08:00→20:00)
[2019-04-30 08:09] LABS: CLARITY,URINE CLEAR (Clear); COLOR,URINE YELLOW (Yellow); GLUCOSE, URINE NEGATIVE (Neg); KETONES,URINE NEGATIVE (Neg); LEUKOCYTE ESTERASE ,URINE SMALL (Neg); NITRITES, URINE NEGATIVE (Neg); OCCULT BLOOD,URINE TRACE-INTACT (Neg); PH,URINE 5.5 (4.8-8.0); PROTEIN,URINE NEGATIVE (Neg); UROBILINOGEN,URINE 0.2 E.U/dL (0.2-1.0)
[2019-04-30 08:15] LABS: UA COLLECTION TYPE CLN CATCH MIDSTREAM
[2019-04-30 08:16] LABS: OCCULT BLOOD STOOL POSITIVE (Neg)
[2019-04-30 08:44] LABS: HYALINE CASTS 0-3 /LPF (NEGATIVE); MUCUS STRANDS FEW /LPF (Neg); SQUAMOUS EPITHELIAL CELL,UR FEW /LPF (FEW)
[2019-04-30 08:46] LABS: BACTERIA,URINE 1+ /HPF (Neg)
[2019-04-30 08:47] LABS: RBC,URINE 0-2 /HPF (0-2)
--- NOTE | 2019-04-30 09:12 | NUR ---
Spoke with patient's daughter on the phone. She states that the patient saw her jet engine mechanic a few days ago and was told that she has, "a hard muscle in her heart" and was started on a new medication. Patient only took one pill as it made her feel "weird". Patient's daughter is not sure what the medication was.
--- NOTE | 2019-04-30 09:22 | NUR ---
Patient's showed us the medication that the patient took 1 day. It is Metoprolol Succ. ER 50mg daily.
[2019-04-30] MEDS: normal saline 1000ml 1,000 ML IV SCH ×2 (09:28→17:44)
[2019-04-30] MEDS ORDERED: fentaNYL/PF 50MCG/1 ML 2ML syringe ONE (11:16)
[2019-04-30] MEDS ORDERED: MIDAZolam 5mg/5ml vial ONE (11:17)
[2019-04-30] MEDS ORDERED: LIDOcaine Viscous 15ml cup ONE (11:17)
--- NOTE | 2019-04-30 15:57 | NUR ---
PAGER ID: [phone] MESSAGE: [id number] Courtney Powell: Med Rec is ready for you to review. She is wanting an albuterol treatment (home med). SHIRA Moya Ext [phone]
[2019-04-30] MEDS ORDERED: FLUT1BLS10 PO (16:21)
[2019-04-30] MEDS ORDERED: FERR324T PO (16:21)
[2019-04-30] MEDS ORDERED: SENN-162 PO (16:21)
[2019-04-30] MEDS ORDERED: sennosides 8.6mg tablet PO PRN (17:35)
[2019-04-30] MEDS ORDERED: albuterol 2.5 MG/3 ML nebule NEB PRN (17:40)
--- NOTE | 2019-04-30 18:12 | NUR ---
Problems reprioritized. Patient report given, questions answered & plan of care reviewed with SHIRA Way.
[2019-04-30] MEDS ORDERED: FLUTICASONE PROPION PO SCH (20:00)
[2019-04-30] MEDS ORDERED: SALMETEROL PO SCH (20:00)
[2019-04-30] MEDS: albuterol 2.5 MG/3 ML nebule NEB SCH (20:24)
[2019-04-30] MEDS: budesonide 0.5mg/2ml UD nebule IH SCH (20:24)
[2019-04-30] MEDS: propranolol 10mg tablet PO SCH (20:53)
[2019-04-30] MEDS: pantoprazole 40mg Tablet.DR PO SCH (20:53)
[2019-04-30] MEDS ORDERED: ALBUTEROL SULFATE INH SCH (21:00)
[2019-05-01] MEDS: normal saline 1000ml 1,000 ML IV SCH ×2 (01:31→13:44)
[2019-05-01 02:00] VITALS: BP 107/58
[2019-05-01] MEDS: albuterol 2.5 MG/3 ML nebule NEB SCH ×3 (02:36→14:52)
[2019-05-01 05:15] LABS: BASOPHILS % (AUTO) 0.4 % (0-1); EOSINOPHILS # (AUTO) 0.1 X10'3 (0-0.9); HEMATOCRIT 22.8 % (35.0-45.0); HEMOGLOBIN 7.9 g/dl (12.0-16.0); LYMPHOCYTES # (AUTO) 1.4 X10'3 (1.1-4.8); LYMPHOCYTES % (AUTO) 15.7 % (21-51); MEAN CORPUSCULAR HEMOGLOBIN 29.6 PG (27.0-31.0); MEAN CORPUSCULAR HGB CONC 34.6 g/dL (33.0-36.5); MEAN CORPUSCULAR VOLUME 85.5 FL (78-98); MEAN PLATELET VOLUME 7.2 FL (7.4-10.4); MONOCYTES # (AUTO) 0.5 X10'3 (0-0.9); MONOCYTES % (AUTO) 5.9 % (2-12); PLATELET COUNT 159 X10'3 (140-440); RED BLOOD COUNT 2.67 X10'6 (4.20-5.60); RED CELL DISTRIBUTION WIDTH 14.9 % (11.5-14.5); WHITE BLOOD COUNT 9.1 X10'3 (4.5-11.0)
[2019-05-01 05:19] LABS: ALBUMIN 2.7 G/DL (3.4-5.0); ANION GAP 0 (8-16); BLOOD UREA NITROGEN 15 MG/DL (7-18); BUN/CREATININE RATIO 23.1 (6.6-38.0); CALCIUM 8.1 MG/DL (8.5-10.1); CHLORIDE 113 MMOL/L (99-107); CREATININE 0.65 MG/DL (0.40-0.90); GLUCOSE 87 MG/DL (70-104); MAGNESIUM 1.8 MG/DL (1.5-2.4); POTASSIUM 4.2 MMOL/L (3.5-5.1); SODIUM 144 MMOL/L (135-145); TOTAL CARBON DIOXIDE 31.1 MMOL/L (24-32); eGFR 90 ML/MIN
--- NOTE | 2019-05-01 05:50 | NUR ---
Patient in room PCU 3016. I have received report from SHIRA Moya and had the opportunity to ask questions and assume patient care.
--- NOTE | 2019-05-01 06:23 | NUR ---
Problems reprioritized. Patient report given, questions answered & plan of care reviewed with SHIAR Reed.
--- NOTE | 2019-05-01 06:24 | NUR ---
Patient in room PCU 3016. I have received report from Rayna SILVA and had the opportunity to ask questions and assume patient care.
[2019-05-01] MEDS: pantoprazole 40mg Tablet.DR PO SCH (07:40)
[2019-05-01] MEDS: propranolol 10mg tablet PO SCH (07:40)
[2019-05-01] MEDS: budesonide 0.5mg/2ml UD nebule IH SCH (07:56)
[2019-05-01] MEDS ORDERED: ferrous gluconate 324mg tablet PO SCH (08:00)
[2019-05-01] MEDS: K and/or MAG REPLACEMENT MC SCH (08:00)
[2019-05-01 11:30] VITALS: BP 130/62
[2019-05-01 11:52] VITALS: BP 99/64
[2019-05-01 12:52] VITALS: BP 130/59
[2019-05-01 13:52] VITALS: BP 113/60
--- NOTE | 2019-05-01 14:38 | NUR ---
Paged regarding pt/family request for CBC PAGER ID: [phone] MESSAGE: [phone] Alexandre Powell Blood trans about to finish. requesting for cbc prior to discharge. Pls advise. Trina 1411
[2019-05-01 15:55] LABS: BASOPHILS # (AUTO) 0.1 X10'3 (0-0.2); EOSINOPHILS # (AUTO) 0.1 X10'3 (0-0.9); EOSINOPHILS % (AUTO) 1.5 % (0-6); HEMATOCRIT 27.8 % (35.0-45.0); HEMOGLOBIN 9.5 g/dl (12.0-16.0); LYMPHOCYTES # (AUTO) 1.6 X10'3 (1.1-4.8); LYMPHOCYTES % (AUTO) 19.9 % (21-51); MEAN CORPUSCULAR HEMOGLOBIN 29.2 PG (27.0-31.0); MEAN CORPUSCULAR HGB CONC 34.2 g/dL (33.0-36.5); MEAN CORPUSCULAR VOLUME 85.5 FL (78-98); MONOCYTES # (AUTO) 0.5 X10'3 (0-0.9); MONOCYTES % (AUTO) 6.7 % (2-12); NEUTROPHILS # (AUTO) 5.8 X10'3 (1.8-7.7); NEUTROPHILS % (AUTO) 70.9 % (42-75); PLATELET COUNT 174 X10'3 (140-440); RED BLOOD COUNT 3.25 X10'6 (4.20-5.60); RED CELL DISTRIBUTION WIDTH 14.3 % (11.5-14.5); WHITE BLOOD COUNT 8.2 X10'3 (4.5-11.0)
--- NOTE | 2019-05-01 17:00 | NUR ---
Per MD orders, patient stable for discharge home. No new meds to call in to pharmacy. Reviewed discharge packet and all questions answered to satisfaction. Patient will call to make own follow up appt. Telemonitoring discontinued, PIV discontinued cannula intact. All belongings sent with patient. Transferred to private vehicle via wheelchair accompanied by .
[2019-05-01] MEDS ORDERED: PANT-47 PO (19:02)
--- NOTE | 2019-05-05 14:56 | NUR ---
Case Management [place] follow up: Pt stated she feels SOB upon exertion, tired, "sick". Had bloodwork done at [facility] Hgb 11.4 which she states is not that low, will have another draw in the morning, 05/06/2019. Has a follow up appt w/grain elevator worker/Jo-Ann. Stated she got a new Rx for Metoprolol 50mg which has made her sick and dizzy/she stated she is sensitive to meds and refuses to take half of that dose as recommended. she is following up w/that prescriber to see what the alternative will be. Continues to take protonix as ordered and understands why. She does not have further questions beyond what was relayed to her at [facility]. Denies cp, pain.
== END 2019-05-01 16:50 | disposition home or self-care (01) | DRG 379 ==
LOC: ER 04:07 → ED HOLD 07:44 → PCU 3S 14:58
PROVIDERS: ADMIT Internal Medicine; ATTEND Internal Medicine
PROC: 0DJ08ZZ Inspection of Upper Intestinal Tract, Via Natural or Artificial Opening Endoscopic (ICD-10-PCS; principal; 2019-04-30)
PROC: 30233N1 Transfusion of Nonautologous Red Blood Cells into Peripheral Vein, Percutaneous Approach (ICD-10-PCS; 2019-04-30)
DX: K29.71 Gastritis, unspecified, with bleeding (principal); D64.9 Anemia, unspecified; K29.81 Duodenitis with bleeding; K44.9 Diaphragmatic hernia without obstruction or gangrene; F17.210 Nicotine dependence, cigarettes, uncomplicated; I10 Essential (primary) hypertension; J44.9 Chronic obstructive pulmonary disease, unspecified; Z86.718 Personal history of other venous thrombosis and embolism; Z87.11 Personal history of peptic ulcer disease; Z95.828 Presence of other vascular implants and grafts; Z91.041 Radiographic dye allergy status; Z88.0 Allergy status to penicillin; Z88.5 Allergy status to narcotic agent; Z71.6 Tobacco abuse counseling
CPT/HCPCS: 36415; 43235; 71045; 80048; 80053; 81001; 82272; 83690; 83735; 84484; 85025; 85610; 85730; 86885; 86900; 86901; 86920; 87081; 87088; 93005; 94640; 94760; 99152; C9113; G0378; J2250; J2405; J3010; J7030; J7626; P9016

== ENCOUNTER 2019-05-22 21:34 | Inpatient (IN) | payer MEDICARE ==
[~2019-05-22] VITALS: Ht 160 cm; Wt 65.0 kg
[~2019-05-22 21:34] MED LIST changes: +FERR324T PO; -FERR324T4 PO; +FLUT1BLS10 PO; -FLUT1DIS INH; +PANT-47 PO; +SENN-162 PO
[2019-05-22] MEDS ORDERED: famotidine/PF 10 mg/ml inj IV ONE (22:05)
[2019-05-22] MEDS ORDERED: pantoprazole 40 MG vial IV ONE ×2 (22:05→23:15)
[2019-05-22 22:11] LABS: BASOPHILS # (AUTO) 0.1 X10'3 (0-0.2); BASOPHILS % (AUTO) 0.6 % (0-1); EOSINOPHILS # (AUTO) 0.1 X10'3 (0-0.9); EOSINOPHILS % (AUTO) 0.8 % (0-6); HEMATOCRIT 26.5 % (35.0-45.0); HEMOGLOBIN 8.7 g/dl (12.0-16.0); LYMPHOCYTES # (AUTO) 1.6 X10'3 (1.1-4.8); LYMPHOCYTES % (AUTO) 12.4 % (21-51); MEAN CORPUSCULAR HEMOGLOBIN 29.5 PG (27.0-31.0); MEAN CORPUSCULAR HGB CONC 32.9 g/dL (33.0-36.5); MEAN CORPUSCULAR VOLUME 89.8 FL (78-98); MEAN PLATELET VOLUME 6.9 FL (7.4-10.4); MONOCYTES # (AUTO) 0.7 X10'3 (0-0.9); MONOCYTES % (AUTO) 5.4 % (2-12); NEUTROPHILS # (AUTO) 10.6 X10'3 (1.8-7.7); NEUTROPHILS % (AUTO) 80.8 % (42-75); PLATELET COUNT 300 X10'3 (140-440); RED BLOOD COUNT 2.95 X10'6 (4.20-5.60); RED CELL DISTRIBUTION WIDTH 15.1 % (11.5-14.5); WHITE BLOOD COUNT 13.1 X10'3 (4.5-11.0)
[2019-05-22 22:18] LABS: ALANINE AMINOTRANSFERASE 20 U/L (12-78); ALBUMIN 3.2 G/DL (3.4-5.0); ALBUMIN/GLOBULIN RATIO 1.1 (1.1-1.5); ALKALINE PHOSPHATASE 52 IU/L (46-116); ANION GAP 7 (8-16); ASPARTATE AMINO TRANSFERASE 20 U/L (10-37); BILIRUBIN,TOTAL 0.3 MG/DL (0.1-1.0); BLOOD UREA NITROGEN 41 MG/DL (7-18); BUN/CREATININE RATIO 48.8 (6.6-38.0); CALCIUM 9.1 MG/DL (8.5-10.1); CHLORIDE 106 MMOL/L (99-107); CREATININE 0.84 MG/DL (0.40-0.90); GLUCOSE 158 MG/DL (70-104); SODIUM 141 MMOL/L (135-145); TOTAL CARBON DIOXIDE 28.1 MMOL/L (24-32); eGFR 67 ML/MIN
[2019-05-22] MEDS ORDERED: pantoprazole 40MG/NS 100ML BAG 100 ML IV ONE (23:35)
[2019-05-22] MEDS: normal saline 1000ml 1,000 ML IV SCH (23:41)
[2019-05-22] MEDS ORDERED: magnesium 4gm in 100ml NS 100 ML IV PRN (23:45)
[2019-05-22] MEDS ORDERED: potassium CL 10mEq/100ml bag 100 ML IV PRN ×2 (23:45)
[2019-05-22] MEDS ORDERED: acetaminophen 325mg tablet PO PRN (23:45)
[2019-05-22] MEDS ORDERED: mag hydrox/Alum hydrox/simeth 30ml oral suspension PO PRN (23:45)
[2019-05-22] MEDS ORDERED: ondansetron/PF 4mg/2ml inj IV PRN (23:45)
[2019-05-22] MEDS ORDERED: potassium Cl 20 mEq SR tablet PO PRN ×2 (23:45)
[2019-05-22] MEDS ORDERED: magnesium 2GM in 50ml NS 50 ML IV PRN (23:45)
[2019-05-23] VITALS (18 sets, daily range): BP systolic 91–126; BP diastolic 42–66
[2019-05-23 00:06] LABS: OCCULT BLOOD STOOL POSITIVE (Neg)
[2019-05-23 03:24] LABS: HEMATOCRIT 22.4 % (35.0-45.0); HEMOGLOBIN 7.5 g/dl (12.0-16.0); MEAN CORPUSCULAR HEMOGLOBIN 29.8 PG (27.0-31.0); MEAN CORPUSCULAR HGB CONC 33.5 g/dL (33.0-36.5); MEAN CORPUSCULAR VOLUME 88.8 FL (78-98); MEAN PLATELET VOLUME 7.1 FL (7.4-10.4); PLATELET COUNT 230 X10'3 (140-440); RED BLOOD COUNT 2.52 X10'6 (4.20-5.60)
[2019-05-23 04:01] LABS: ALBUMIN 2.9 G/DL (3.4-5.0); ANION GAP 5 (8-16); BLOOD UREA NITROGEN 40 MG/DL (7-18); BUN/CREATININE RATIO 56.3 (6.6-38.0); CALCIUM 8.2 MG/DL (8.5-10.1); CHLORIDE 109 MMOL/L (99-107); CREATININE 0.71 MG/DL (0.40-0.90); GLUCOSE 121 MG/DL (70-104); MAGNESIUM 1.9 MG/DL (1.5-2.4); POTASSIUM 4.2 MMOL/L (3.5-5.1); SODIUM 142 MMOL/L (135-145); TOTAL CARBON DIOXIDE 27.9 MMOL/L (24-32); eGFR 81 ML/MIN
[2019-05-23] MEDS ORDERED: pantoprazole 40MG/NS 100ML BAG 100 ML IV SCH (05:00)
--- NOTE | 2019-05-23 06:31 | NUR ---
Problems reprioritized. Patient report given, questions answered & plan of care reviewed with SHIRA Downs.
--- NOTE | 2019-05-23 06:54 | NUR ---
Patient in room ORTHO 4014B. I have received report from SHIRA MONCADA and had the opportunity to ask questions and assume patient care.
[2019-05-23] MEDS: K and/or MAG REPLACEMENT MC SCH ×2 (07:04→20:00)
[2019-05-23] MEDS: propranolol 10mg tablet PO SCH ×2 (07:19→19:06)
[2019-05-23] MEDS: ferrous gluconate 324mg tablet PO SCH ×2 (08:00→19:06)
[2019-05-23] MEDS: [UNRECOGNIZED DRUG - OTHER] IH SCH ×2 (09:00→20:23)
[2019-05-23] MEDS: albuterol 2.5 MG/3 ML nebule NEB SCH ×3 (09:26→20:20)
[2019-05-23 10:02] LABS: MEAN CORPUSCULAR HGB CONC 33.6 g/dL (33.0-36.5); MEAN CORPUSCULAR VOLUME 89.5 FL (78-98); MEAN PLATELET VOLUME 6.9 FL (7.4-10.4); PLATELET COUNT 228 X10'3 (140-440); RED BLOOD COUNT 2.32 X10'6 (4.20-5.60); RED CELL DISTRIBUTION WIDTH 14.9 % (11.5-14.5); WHITE BLOOD COUNT 7.7 X10'3 (4.5-11.0)
[2019-05-23 10:10] LABS: HEMATOCRIT 20.7 % (35.0-45.0)
--- NOTE | 2019-05-23 10:14 | NUR ---
promotional table spacer PAGER ID: [phone] MESSAGE: BETY 5199-CRITICAL LAB VALUE HGB 7.0, HCT 20.7
[2019-05-23] MEDS ORDERED: fentaNYL/PF 50MCG/1 ML 2ML syringe ONE (10:42)
[2019-05-23] MEDS ORDERED: LIDOcaine Viscous 15ml cup ONE (10:43)
[2019-05-23] MEDS ORDERED: MIDAZolam 5mg/5ml vial ONE (10:43)
--- NOTE | 2019-05-23 10:56 | NUR ---
PT WAS SENT TO GI LAB WITH 1 UNIT BLOOD. GI WILL HANG BLOOD AND MONITOR VITALS.
[2019-05-23] MEDS: pantoprazole 40MG/NS 100ML BAG 100 ML IV SCH ×2 (13:00→19:12)
--- NOTE | 2019-05-23 13:17 | NUR ---
PAGER ID: [phone] MESSAGE: BETY [id number]-RE: DAMIEN KHAN 4014B...PT BACK IN ROOM FROM GI LAB, UPPER GI ENDO REPORT IN CHART
[2019-05-23] MEDS: normal saline 1000ml 1,000 ML IV SCH (14:17)
[2019-05-23 15:37] LABS: HEMATOCRIT 24.8 % (35.0-45.0); HEMOGLOBIN 8.3 g/dl (12.0-16.0); MEAN CORPUSCULAR HEMOGLOBIN 30.2 PG (27.0-31.0); MEAN CORPUSCULAR HGB CONC 33.5 g/dL (33.0-36.5); PLATELET COUNT 208 X10'3 (140-440); RED BLOOD COUNT 2.76 X10'6 (4.20-5.60); RED CELL DISTRIBUTION WIDTH 15.1 % (11.5-14.5); WHITE BLOOD COUNT 7.7 X10'3 (4.5-11.0)
--- NOTE | 2019-05-23 18:10 | NUR ---
Received patient report from SHIRA Downs. Assumed patient care.
--- NOTE | 2019-05-23 18:16 | NUR ---
Problems reprioritized. Patient report given, questions answered & plan of care reviewed with saima clark.
[2019-05-23 21:20] LABS: HEMOGLOBIN 7.3 g/dl (12.0-16.0); MEAN CORPUSCULAR HGB CONC 34.4 g/dL (33.0-36.5); MEAN PLATELET VOLUME 6.9 FL (7.4-10.4); PLATELET COUNT 182 X10'3 (140-440); RED BLOOD COUNT 2.36 X10'6 (4.20-5.60); RED CELL DISTRIBUTION WIDTH 15.4 % (11.5-14.5); WHITE BLOOD COUNT 7.2 X10'3 (4.5-11.0)
[2019-05-23 21:33] LABS: HEMATOCRIT 21.2 % (35.0-45.0)
--- NOTE | 2019-05-23 21:40 | NUR ---
Critical lab HCT 21.2. Notified Dr. Bardales, he ordered 1 unit of blood.
[2019-05-24 00:43] VITALS: BP 114/56
[2019-05-24 01:30] VITALS: BP 104/62
[2019-05-24] MEDS: pantoprazole 40MG/NS 100ML BAG 100 ML IV SCH ×5 (03:24→16:00)
[2019-05-24 06:00] VITALS: BP 131/74
--- NOTE | 2019-05-24 06:09 | NUR ---
Patient report given, questions answered and plan of care reviewed with SHIRA Moya.
--- NOTE | 2019-05-24 06:46 | NUR ---
Patient in room ORTHO 4014. I have received report from SHIRA Kim and had the opportunity to ask questions and assume patient care.
[2019-05-24] MEDS: K and/or MAG REPLACEMENT MC SCH (07:01)
[2019-05-24 07:14] LABS: HEMATOCRIT 28.4 % (35.0-45.0); HEMOGLOBIN 9.9 g/dl (12.0-16.0); MEAN CORPUSCULAR HEMOGLOBIN 30.6 PG (27.0-31.0); MEAN CORPUSCULAR HGB CONC 34.8 g/dL (33.0-36.5); MEAN CORPUSCULAR VOLUME 88.1 FL (78-98); MEAN PLATELET VOLUME 6.9 FL (7.4-10.4); PLATELET COUNT 173 X10'3 (140-440); RED BLOOD COUNT 3.22 X10'6 (4.20-5.60); RED CELL DISTRIBUTION WIDTH 15.1 % (11.5-14.5)
[2019-05-24 07:23] LABS: ALBUMIN 2.8 G/DL (3.4-5.0); ANION GAP 5 (8-16); BLOOD UREA NITROGEN 15 MG/DL (7-18); CALCIUM 7.8 MG/DL (8.5-10.1); CHLORIDE 111 MMOL/L (99-107); GLUCOSE 85 MG/DL (70-104); MAGNESIUM 1.8 MG/DL (1.5-2.4); POTASSIUM 4.1 MMOL/L (3.5-5.1); SODIUM 144 MMOL/L (135-145); TOTAL CARBON DIOXIDE 27.7 MMOL/L (24-32); eGFR > 90 ML/MIN
[2019-05-24] MEDS: propranolol 10mg tablet PO SCH (07:37)
[2019-05-24] MEDS: ferrous gluconate 324mg tablet PO SCH (07:37)
[2019-05-24] MEDS ORDERED: budesonide 0.5mg/2ml UD nebule IH SCH (08:00)
[2019-05-24] MEDS: albuterol 2.5 MG/3 ML nebule NEB SCH ×3 (09:13→16:16)
[2019-05-24 10:00] VITALS: BP 134/66
[2019-05-24 12:03] LABS: BASOPHILS # (AUTO) 0.1 X10'3 (0-0.2); BASOPHILS % (AUTO) 1.3 % (0-1); EOSINOPHILS # (AUTO) 0.1 X10'3 (0-0.9); HEMATOCRIT 26.1 % (35.0-45.0); HEMOGLOBIN 9.1 g/dl (12.0-16.0); LYMPHOCYTES # (AUTO) 1.5 X10'3 (1.1-4.8); MEAN CORPUSCULAR HEMOGLOBIN 30.8 PG (27.0-31.0); MEAN CORPUSCULAR VOLUME 88.1 FL (78-98); MEAN PLATELET VOLUME 6.7 FL (7.4-10.4); MONOCYTES # (AUTO) 0.5 X10'3 (0-0.9); MONOCYTES % (AUTO) 6.6 % (2-12); NEUTROPHILS % (AUTO) 69.1 % (42-75); PLATELET COUNT 173 X10'3 (140-440); RED BLOOD COUNT 2.96 X10'6 (4.20-5.60); RED CELL DISTRIBUTION WIDTH 14.9 % (11.5-14.5); WHITE BLOOD COUNT 7.2 X10'3 (4.5-11.0)
--- NOTE | 2019-05-24 14:48 | NUR ---
PAGER ID: [phone] MESSAGE: [phone] [id number] Courtney Powell: Patient is concerned about possible Discharge home when I mentioned it to her. She is also feels she is too weak to DC. She may end up doing the medicare discharge appeal process. SHIRA Moya
[2019-05-24 16:18] LABS: BASOPHILS # (AUTO) 0.1 X10'3 (0-0.2); BASOPHILS % (AUTO) 1.2 % (0-1); EOSINOPHILS # (AUTO) 0.2 X10'3 (0-0.9); EOSINOPHILS % (AUTO) 3.1 % (0-6); HEMATOCRIT 26.4 % (35.0-45.0); HEMOGLOBIN 9.1 g/dl (12.0-16.0); LYMPHOCYTES # (AUTO) 1.9 X10'3 (1.1-4.8); MEAN CORPUSCULAR HEMOGLOBIN 30.4 PG (27.0-31.0); MEAN CORPUSCULAR HGB CONC 34.5 g/dL (33.0-36.5); MEAN CORPUSCULAR VOLUME 88.2 FL (78-98); MEAN PLATELET VOLUME 6.9 FL (7.4-10.4); MONOCYTES # (AUTO) 0.5 X10'3 (0-0.9); NEUTROPHILS # (AUTO) 3.8 X10'3 (1.8-7.7); NEUTROPHILS % (AUTO) 58.7 % (42-75); PLATELET COUNT 184 X10'3 (140-440); RED BLOOD COUNT 2.99 X10'6 (4.20-5.60); RED CELL DISTRIBUTION WIDTH 14.6 % (11.5-14.5); WHITE BLOOD COUNT 6.4 X10'3 (4.5-11.0)
--- NOTE | 2019-05-24 16:34 | NUR ---
Patient agreeable to Discharge home. Aware that Hgb stayed at 9.1 and was able to tolerate solid food. Patient is aware of medicare DC rights but has changed her mind.
--- NOTE | 2019-05-24 16:37 | NUR ---
Patient was concerned about discharge. Patient is now agreeable to DC and no longer wants to appeal through medicare. Patient was explained her rights through the medicare DC appeal and educated on how to go through with it. Patient confirmed she understood the instructions and to call the number. I let the patient know her 1600 Hgb came back at 9.1 which was unchanged from the 1147 draw that was also 9.1. Patient is aware of the levels. Patient was also given a sandwich at 1530 to test how she would tolerate solid foods. Patient finished sandwich and has no C/O of N/V. Patient states she feels okay to discharge and isn't going to go through with the medicare appeal anymore.
[2019-05-24] MEDS ORDERED: PANT40TA4 PO (16:45)
--- NOTE | 2019-05-24 16:56 | NUR ---
to pickup patient. Said, "he gets off work in five minutes and it is a [address]
--- NOTE | 2019-05-24 17:39 | NUR ---
Left message to [facility] in [place] with my name and [facility]. The prescription dose and instructions and number of refills. Dr Aundrea Bell name spelled out and her NPI number. Also, the patient name which I spelled out the full name and her date of and lastly a call back number.
--- NOTE | 2019-05-24 17:45 | NUR ---
Patient signed medicare DC rights and slip for DC. PIV taken out. Patient educated on follow-up, meds and GIB. Patient want to peanut picker meds at her pharmacy tomorrow and is aware they are currently closed today.
--- NOTE | 2019-05-24 18:36 | NUR ---
Problems reprioritized. Patient report given, questions answered & plan of care reviewed with SHIRA Ko.
--- NOTE | 2019-05-25 16:08 | NUR ---
Case Management DC follow up: Pt states she is still dizzy and weak. SOB w/exertion, knows her hgb is low.Was DCd w/9.1. Still has bright red blood w/BM, not as much as at DC, but it is still concerning. verbalizes she will be seeing GI specialist for capsule endoscopy inquiry w/ Dr Kruger. she verbalized understanding to rtn to ER if symptoms worsen r/t GI bleed. Pt will be going to PCP for blood work tomorrow, 05/26/2019. Pt understands meds and why prescribed. Taking as ordered. Will request H Pylori test w/PCP. pt states she is not happy. Stated the nurses were great, fantastic. Pt does not feel needs met at hospital, questions answered otherwise. No further questions at this time.
== END 2019-05-24 19:00 | disposition home or self-care (01) | DRG 379 ==
LOC: ER 21:35 → ED HOLD 05-23 00:28 → ORTHO 4S 05-23 00:30
PROVIDERS: ADMIT Family Medicine; ATTEND Internal Medicine
PROC: 0D598ZZ Destruction of Duodenum, Via Natural or Artificial Opening Endoscopic (ICD-10-PCS; principal; 2019-05-23)
PROC: 30233N1 Transfusion of Nonautologous Red Blood Cells into Peripheral Vein, Percutaneous Approach (ICD-10-PCS; 2019-05-23)
DX: K31.811 Angiodysplasia of stomach and duodenum with bleeding (principal); F17.210 Nicotine dependence, cigarettes, uncomplicated; K44.9 Diaphragmatic hernia without obstruction or gangrene; D50.0 Iron deficiency anemia secondary to blood loss (chronic); I10 Essential (primary) hypertension; J44.9 Chronic obstructive pulmonary disease, unspecified; Z86.718 Personal history of other venous thrombosis and embolism; Z87.11 Personal history of peptic ulcer disease; Z95.828 Presence of other vascular implants and grafts; Z88.5 Allergy status to narcotic agent; Z88.0 Allergy status to penicillin; Z91.041 Radiographic dye allergy status; Z79.899 Other long term (current) drug therapy
CPT/HCPCS: 36415; 43227; 43235; 71045; 80048; 80053; 82272; 83735; 84484; 85025; 85027; 86885; 86900; 86901; 86920; 87081; 93005; 94640; 94760; 96365; 96375; 97116; 97161; 97530; 99152; 99285; A4620; C9113; G0378; J2250; J3010; J3490; J7030; J7626; P9016

== ENCOUNTER 2019-07-15 08:16 | Day surgery (SDC) | payer MEDICARE ==
[~2019-07-15] VITALS: Ht 160 cm; Wt 63.5 kg
[~2019-07-15 08:16] MED LIST changes: -PANT-47 PO; +PANT40TA4 PO
[2019-07-15 08:40] VITALS: BP 154/79
[2019-07-15] MEDS ORDERED: normal saline 1000ml 1,000 ML IV PRN (08:40)
[2019-07-15] MEDS ORDERED: FERR325T28 PO (08:46)
[2019-07-15 10:10] LABS: BASOPHILS # (AUTO) 0.1 X10'3 (0-0.2); BASOPHILS % (AUTO) 1.2 % (0-1); EOSINOPHILS % (AUTO) 0.2 % (0-6); HEMATOCRIT 36.4 % (35.0-45.0); HEMOGLOBIN 12.2 g/dl (12.0-16.0); LYMPHOCYTES # (AUTO) 0.9 X10'3 (1.1-4.8); LYMPHOCYTES % (AUTO) 18.7 % (21-51); MEAN CORPUSCULAR HEMOGLOBIN 30.5 PG (27.0-31.0); MEAN CORPUSCULAR HGB CONC 33.5 g/dL (33.0-36.5); MONOCYTES # (AUTO) 0.7 X10'3 (0-0.9); MONOCYTES % (AUTO) 13.2 % (2-12); NEUTROPHILS # (AUTO) 3.4 X10'3 (1.8-7.7); NEUTROPHILS % (AUTO) 66.7 % (42-75); PLATELET COUNT 271 X10'3 (140-440); RED CELL DISTRIBUTION WIDTH 13.3 % (11.5-14.5); WHITE BLOOD COUNT 5.1 X10'3 (4.5-11.0)
[2019-07-15] MEDS ORDERED: LIDOcaine 1%/PF 5ML 10 MG/ML VIAL ONE (10:15)
[2019-07-15] MEDS ORDERED: midazolam 2 mg/2 ml injection ONE (10:16)
[2019-07-15] MEDS ORDERED: fentaNYL/PF 50MCG/1 ML 2ML syringe ONE (10:16)
[2019-07-15] MEDS ORDERED: heparin 1,000 UNITS/NS 500ml 500 ML ONE (10:16)
[2019-07-15 10:17] LABS: ALBUMIN 3.6 G/DL (3.4-5.0); ANION GAP 6 (8-16); BLOOD UREA NITROGEN 9 MG/DL (7-18); BUN/CREATININE RATIO 13.4 (6.6-38.0); CALCIUM 8.5 MG/DL (8.5-10.1); CHLORIDE 105 MMOL/L (99-107); CREATININE 0.67 MG/DL (0.40-0.90); GLUCOSE 92 MG/DL (70-104); POTASSIUM 4.4 MMOL/L (3.5-5.1); SODIUM 139 MMOL/L (135-145); TOTAL CARBON DIOXIDE 28.4 MMOL/L (24-32); eGFR 87 ML/MIN
[2019-07-15] MEDS ORDERED: normal saline 1000ml 1,000 ML IV SCH (11:33)
[2019-07-15 11:45] VITALS: BP 154/79
[2019-07-15 12:00] VITALS: BP 143/74
[2019-07-15 12:15] VITALS: BP 174/89
[2019-07-15 12:30] VITALS: BP 127/62
== END 2019-07-15 12:40 | disposition home or self-care (01) ==
LOC: SSTAY O 08:16
PROVIDERS: ATTEND Radiology Vascular & Interventional Radiology
DX: Z46.89 Encounter for fitting and adjustment of other specified devices (principal); J43.9 Emphysema, unspecified; Z79.82 Long term (current) use of aspirin; Z88.6 Allergy status to analgesic agent; Z88.0 Allergy status to penicillin; Z91.041 Radiographic dye allergy status; Z86.73 Personal history of transient ischemic attack (TIA), and cerebral infarction without residual deficits; Z86.718 Personal history of other venous thrombosis and embolism; Z88.8 Allergy status to other drugs, medicaments and biological substances
CPT/HCPCS: 36415; 37193; 80048; 85025; 99152; 99153; J1644; J2250; J3010; C1769; C1894

== ENCOUNTER 2021-04-08 12:21 | Emergency (ER) | payer MEDICARE ==
[~2021-04-08] VITALS: Ht 160 cm; Wt 68.2 kg
[~2021-04-08 12:21] MED LIST changes: -ALB0.5UD INH; +ALBU17AE26 INH; -ALBU8.5H8 INH; -FERR324T PO; +FERR325T28 PO; -FLUT1BLS10 PO; +FLUT1DIS20 INH; -PANT40TA4 PO; +PANT40TA54 PO; -SENN-162 PO; +SENN-263 PO
[2021-04-08 13:37] LABS: BASOPHILS # (AUTO) 0.1 X10'3 (0-0.2); BASOPHILS % (AUTO) 0.8 % (0-1); EOSINOPHILS # (AUTO) 0.1 X10'3 (0-0.9); HEMATOCRIT 29.9 % (35.0-45.0); HEMOGLOBIN 10.3 g/dl (12.0-16.0); LYMPHOCYTES # (AUTO) 1.9 X10'3 (1.1-4.8); LYMPHOCYTES % (AUTO) 21.3 % (21-51); MEAN CORPUSCULAR HEMOGLOBIN 29.7 PG (27.0-31.0); MEAN CORPUSCULAR HGB CONC 34.3 g/dL (33.0-36.5); MEAN CORPUSCULAR VOLUME 86.7 FL (78-98); MEAN PLATELET VOLUME 7.1 FL (7.4-10.4); MONOCYTES # (AUTO) 0.6 X10'3 (0-0.9); MONOCYTES % (AUTO) 6.3 % (2-12); NEUTROPHILS # (AUTO) 6.3 X10'3 (1.8-7.7); NEUTROPHILS % (AUTO) 70.6 % (42-75); PLATELET COUNT 254 X10'3 (140-440); RED BLOOD COUNT 3.45 X10'6 (4.20-5.60); RED CELL DISTRIBUTION WIDTH 14.5 % (11.5-14.5); WHITE BLOOD COUNT 8.9 X10'3 (4.5-11.0)
[2021-04-08] MEDS ORDERED: normal saline 1000ml 1,000 ML IV ONE (13:45)
[2021-04-08 13:51] LABS: PARTIAL THROMBOPLASTIN TIME 23 SECONDS (22-32)
[2021-04-08 13:56] LABS: ALANINE AMINOTRANSFERASE 24 U/L (12-78); ALBUMIN 3.3 G/DL (3.4-5.0); ALBUMIN/GLOBULIN RATIO 1.1 (1.1-1.5); ALKALINE PHOSPHATASE 43 IU/L (46-116); ANION GAP 5 (8-16); ASPARTATE AMINO TRANSFERASE 24 U/L (10-37); BILIRUBIN,TOTAL 0.3 MG/DL (0.1-1.0); BLOOD UREA NITROGEN 23 MG/DL (7-18); BUN/CREATININE RATIO 32.4 (6.6-38.0); CALCIUM 8.9 MG/DL (8.5-10.1); CHLORIDE 106 MMOL/L (99-107); CREATININE 0.71 MG/DL (0.40-0.90); GLUCOSE 92 MG/DL (70-104); POTASSIUM 4.1 MMOL/L (3.5-5.1); SODIUM 140 MMOL/L (135-145); TOTAL CARBON DIOXIDE 28.6 MMOL/L (24-32); TOTAL PROTEIN 6.4 G/DL (6.4-8.2); eGFR 81 ML/MIN
[2021-04-08] MEDS ORDERED: PANT20TA2 PO (15:03)
[2021-04-08] MEDS ORDERED: pantoprazole 40mg Tablet.DR PO SCH (15:14)
[2021-04-08 15:25] VITALS: BP 123/65
[2021-04-08 16:10] LABS: OCCULT BLOOD STOOL POSITIVE (Neg)
== END 2021-04-08 15:37 | disposition home or self-care (01) ==
LOC: ER 12:22
DX: K92.2 Gastrointestinal hemorrhage, unspecified (principal); Z20.822 Contact with and (suspected) exposure to COVID-19; D64.9 Anemia, unspecified; K92.1 Melena; R53.1 Weakness; R11.0 Nausea; R05.9 Cough, unspecified; J43.9 Emphysema, unspecified; Z86.73 Personal history of transient ischemic attack (TIA), and cerebral infarction without residual deficits; Z98.890 Other specified postprocedural states; Z88.8 Allergy status to other drugs, medicaments and biological substances; Z88.0 Allergy status to penicillin; Z88.5 Allergy status to narcotic agent; Z79.899 Other long term (current) drug therapy
CPT/HCPCS: 36415; 71045; 80053; 82272; 85025; 85610; 85730; 87635; 99284; C9803; J7030

== ENCOUNTER 2022-08-25 17:32 | Inpatient (IN) | payer MEDICARE ==
[~2022-08-25] VITALS: Ht 160 cm; Wt 62.0 kg
[~2022-08-25 17:32] MED LIST changes: +PANT20TA2 PO
[2022-08-25 18:23] LABS: BASOPHILS % (AUTO) 0.3 % (0-1); EOSINOPHILS # (AUTO) 0.1 X10'3 (0-0.9); EOSINOPHILS % (AUTO) 1.7 % (0-6); HEMATOCRIT 37.3 % (35.0-45.0); HEMOGLOBIN 12.4 g/dl (12.0-16.0); LYMPHOCYTES # (AUTO) 1.8 X10'3 (1.1-4.8); LYMPHOCYTES % (AUTO) 21.2 % (21-51); MEAN CORPUSCULAR HEMOGLOBIN 29.3 PG (27.0-31.0); MEAN CORPUSCULAR HGB CONC 33.2 g/dL (33.0-36.5); MEAN PLATELET VOLUME 6.6 FL (7.4-10.4); MONOCYTES # (AUTO) 0.6 X10'3 (0-0.9); MONOCYTES % (AUTO) 7.4 % (2-12); NEUTROPHILS % (AUTO) 69.4 % (42-75); PLATELET COUNT 365 X10'3 (140-440); RED BLOOD COUNT 4.24 X10'6 (4.20-5.60); RED CELL DISTRIBUTION WIDTH 13.9 % (11.5-14.5); WHITE BLOOD COUNT 8.7 X10'3 (4.5-11.0)
[2022-08-25 18:45] LABS: ALBUMIN 3.5 G/DL (3.4-5.0); ANION GAP 4 (8-16); BILIRUBIN,TOTAL 0.2 MG/DL (0.1-1.0); BLOOD UREA NITROGEN 21 MG/DL (7-18); BUN/CREATININE RATIO 25.9 (10.0-20.0); CALCIUM 9.4 MG/DL (8.5-10.1); CHLORIDE 105 MMOL/L (99-107); CREATININE 0.81 MG/DL (0.40-0.90); GLUCOSE 102 MG/DL (70-104); POTASSIUM 4.4 MMOL/L (3.5-5.1); SODIUM 138 MMOL/L (135-145); TOTAL CARBON DIOXIDE 28.8 MMOL/L (24-32); TOTAL PROTEIN 6.9 G/DL (6.4-8.2); eGFR 69 ML/MIN
[2022-08-25 18:46] LABS: ALANINE AMINOTRANSFERASE 18 U/L (12-78); ALKALINE PHOSPHATASE 70 IU/L (46-116); ASPARTATE AMINO TRANSFERASE 17 U/L (10-37)
[2022-08-25 18:51] LABS: LIPASE 103 U/L (73-393)
[2022-08-25 22:16] LABS: GASTRIC OCCULT BLOOD POSITIVE (Neg)
[2022-08-25] MEDS ORDERED: VITC500T PO (22:23)
[2022-08-25] MEDS ORDERED: FLUT1BLS10 INH (22:23)
[2022-08-25] MEDS ORDERED: CETI-194 PO (22:23)
[2022-08-25] MEDS ORDERED: pantoprazole 40 MG vial IV ONE (23:45)
[2022-08-25] MEDS ORDERED: pantoprazole 40MG/NS 100ML BAG 100 ML IV ONE (23:45)
[2022-08-26 00:35] LABS: APTT 27 SECONDS (22-32)
[2022-08-26 00:37] LABS: CLARITY,URINE CLEAR (Clear); COLOR,URINE YELLOW (Yellow); GLUCOSE, URINE NEGATIVE (Neg); KETONES,URINE NEGATIVE (Neg); LEUKOCYTE ESTERASE ,URINE TRACE (Neg); NITRITES, URINE NEGATIVE (Neg); OCCULT BLOOD,URINE TRACE-INTACT (Neg); PROTEIN,URINE NEGATIVE (Neg); UROBILINOGEN,URINE 0.2 E.U/dL (0.2-1.0)
[2022-08-26 00:43] LABS: UA COLLECTION TYPE CLN CATCH MIDSTREAM
[2022-08-26 00:46] LABS: WBC,URINE 0-4 /HPF (0-4)
[2022-08-26 00:47] LABS: BACTERIA,URINE FEW /HPF (Neg); SQUAMOUS EPITHELIAL CELL,UR FEW /LPF (FEW)
[2022-08-26] MEDS ORDERED: potassium Cl 20 mEq SR tablet PO PRN ×2 (04:10)
[2022-08-26] MEDS ORDERED: magnesium 2GM in 50ml NS 50 ML IV PRN (04:10)
[2022-08-26] MEDS ORDERED: ondansetron/PF 4mg/2ml inj IV PRN (04:10)
[2022-08-26] MEDS ORDERED: magnesium 4gm in 100ml NS 100 ML IV PRN (04:10)
[2022-08-26] MEDS ORDERED: potassium Cl 40MEQ/1/2NS 520ml 520 ML IV PRN (04:10)
[2022-08-26] MEDS ORDERED: magnesium Cl slow-release 64mg tablet PO PRN (04:10)
[2022-08-26] MEDS ORDERED: HYDROcodone/acetaminophen 5mg/325mg tablet PO PRN (04:10)
--- NOTE | 2022-08-26 05:15 | NUR ---
RECEIVED PT FROM ER VIA WC FOLLOWING VERBAL REPORT FROM BERENICE. ASSUMED CARE OF PT.
[2022-08-26] MEDS: normal saline 1000ml 1,000 ML IV SCH ×2 (05:35→14:10)
--- NOTE | 2022-08-26 05:59 | NUR ---
Problems reprioritized. Patient report given, questions answered & plan of care reviewed with ELPIDIO.
[2022-08-26 06:00] VITALS: BP 151/88
[2022-08-26 06:16] LABS: MAGNESIUM 2.1 MG/DL (1.5-2.4)
--- NOTE | 2022-08-26 07:58 | NUR ---
Patient in room ALYSSA 360A. I have received report from SHIRA VALLE and had the opportunity to ask questions and assume patient care.
[2022-08-26] MEDS: K and/or MAG REPLACEMENT MC SCH ×2 (08:00→20:00)
[2022-08-26] MEDS: pantoprazole 40MG/NS 100ML BAG 100 ML IV SCH ×2 (08:20→20:41)
[2022-08-26 09:26] LABS: BASOPHILS # (AUTO) 0.1 X10'3 (0-0.2); BASOPHILS % (AUTO) 0.8 % (0-1); EOSINOPHILS # (AUTO) 0.1 X10'3 (0-0.9); EOSINOPHILS % (AUTO) 1.6 % (0-6); HEMATOCRIT 36.7 % (35.0-45.0); HEMOGLOBIN 12.1 g/dl (12.0-16.0); LYMPHOCYTES # (AUTO) 2.2 X10'3 (1.1-4.8); LYMPHOCYTES % (AUTO) 22.8 % (21-51); MEAN CORPUSCULAR HEMOGLOBIN 29.1 PG (27.0-31.0); MEAN CORPUSCULAR HGB CONC 33.1 g/dL (33.0-36.5); MEAN CORPUSCULAR VOLUME 87.8 FL (78-98); MEAN PLATELET VOLUME 7.3 FL (7.4-10.4); MONOCYTES # (AUTO) 0.8 X10'3 (0-0.9); MONOCYTES % (AUTO) 8.2 % (2-12); NEUTROPHILS # (AUTO) 6.3 X10'3 (1.8-7.7); NEUTROPHILS % (AUTO) 66.6 % (42-75); PLATELET COUNT 337 X10'3 (140-440); RED BLOOD COUNT 4.17 X10'6 (4.20-5.60); RED CELL DISTRIBUTION WIDTH 13.9 % (11.5-14.5); WHITE BLOOD COUNT 9.4 X10'3 (4.5-11.0)
[2022-08-26] MEDS ORDERED: cetirizine 10mg tablet PO PRN (10:05)
[2022-08-26] MEDS ORDERED: sennosides 8.6mg tablet PO PRN (10:05)
[2022-08-26] MEDS ORDERED: albuterol 2.5 MG/3 ML nebule NEB ONE (10:15)
[2022-08-26] MEDS: budesonide 0.5mg/2ml UD nebule IH SCH ×2 (10:38→21:00)
[2022-08-26 11:00] VITALS: BP 168/70
[2022-08-26] MEDS: albuterol 2.5 MG/3 ML nebule NEB SCH ×3 (12:58→21:01)
[2022-08-26 13:21] VITALS: BP 124/87
[2022-08-26] MEDS: propranolol 10mg tablet PO SCH ×3 (13:22→20:40)
[2022-08-26] MEDS ORDERED: iohexol 350MG/ML 100ml bottle IV ONE (13:25)
--- NOTE | 2022-08-26 18:57 | NUR ---
Patient in room ALYSSA 360. I have received report from vivian SILVA and had the opportunity to ask questions and assume patient care.
--- NOTE | 2022-08-26 18:58 | NUR ---
Problems reprioritized. Patient report given, questions answered & plan of care reviewed with SHIRA SHARP.
[2022-08-26] MEDS ORDERED: prednisone 10mg tablet PO ONE (21:00)
[2022-08-26 23:00] VITALS: BP 149/65
[2022-08-27] MEDS: normal saline 1000ml 1,000 ML IV SCH ×2 (01:44→12:34)
[2022-08-27] MEDS ORDERED: prednisone 10mg tablet PO ONE ×2 (04:00→09:00)
[2022-08-27 06:00] VITALS: BP 157/85
--- NOTE | 2022-08-27 06:26 | NUR ---
Patient in room ALYSSA 360. I have received report from ARON SILVA and had the opportunity to ask questions and assume patient care.
--- NOTE | 2022-08-27 06:27 | NUR ---
Problems reprioritized. Patient report given, questions answered & plan of care reviewed with Edgardo SILVA.
[2022-08-27 07:06] LABS: BASOPHILS % (AUTO) 0.3 % (0-1); EOSINOPHILS % (AUTO) 0 % (0-6); HEMATOCRIT 36.9 % (35.0-45.0); HEMOGLOBIN 12.2 g/dl (12.0-16.0); LYMPHOCYTES # (AUTO) 0.8 X10'3 (1.1-4.8); LYMPHOCYTES % (AUTO) 10.1 % (21-51); MEAN CORPUSCULAR HEMOGLOBIN 29.1 PG (27.0-31.0); MEAN CORPUSCULAR HGB CONC 33.1 g/dL (33.0-36.5); MEAN CORPUSCULAR VOLUME 87.9 FL (78-98); MONOCYTES # (AUTO) 0.1 X10'3 (0-0.9); MONOCYTES % (AUTO) 1.1 % (2-12); NEUTROPHILS # (AUTO) 7.3 X10'3 (1.8-7.7); NEUTROPHILS % (AUTO) 88.5 % (42-75); PLATELET COUNT 351 X10'3 (140-440); RED CELL DISTRIBUTION WIDTH 14.2 % (11.5-14.5); WHITE BLOOD COUNT 8.3 X10'3 (4.5-11.0)
[2022-08-27 07:09] LABS: ALBUMIN 3.2 G/DL (3.4-5.0); ANION GAP 7 (8-16); BLOOD UREA NITROGEN 9 MG/DL (7-18); BUN/CREATININE RATIO 14.5 (10.0-20.0); CALCIUM 8.7 MG/DL (8.5-10.1); CHLORIDE 108 MMOL/L (99-107); CREATININE 0.62 MG/DL (0.40-0.90); GLUCOSE 147 MG/DL (70-104); POTASSIUM 4.1 MMOL/L (3.5-5.1); SODIUM 141 MMOL/L (135-145); TOTAL CARBON DIOXIDE 26.5 MMOL/L (24-32); eGFR > 90 ML/MIN
[2022-08-27] MEDS: pantoprazole 40MG/NS 100ML BAG 100 ML IV SCH (07:44)
[2022-08-27] MEDS: propranolol 10mg tablet PO SCH ×2 (07:44→13:37)
[2022-08-27 08:00] VITALS: BP_SYST 154; BP_SYST 155; BP_DIAS 75; BP_DIAS 77; BP_DIAS 82
[2022-08-27] MEDS ORDERED: ascorbic acid 500mg tablet PO SCH (08:00)
[2022-08-27] MEDS ORDERED: ferrous sulfate 325mg tablet PO SCH (08:00)
[2022-08-27] MEDS: K and/or MAG REPLACEMENT MC SCH (08:00)
[2022-08-27] MEDS ORDERED: diphenhydrAMINE 25mg capsule PO ONE (09:00)
[2022-08-27] MEDS: albuterol 2.5 MG/3 ML nebule NEB SCH ×2 (09:00→14:28)
[2022-08-27] MEDS: budesonide 0.5mg/2ml UD nebule IH SCH (09:00)
[2022-08-27] MEDS ORDERED: iohexol 300mg/ml 100ml inj. ONE (09:58)
[2022-08-27 10:00] VITALS: BP 156/70
--- NOTE | 2022-08-27 10:44 | NUR ---
per dr klein it is ok that pt did not want to take her iron on empty stomach. pt has returned from ct scan
--- NOTE | 2022-08-27 16:13 | NUR ---
pt is stable for dc, iv cannula is intact and iv dc, all belongings taken with pt, and all dc info gone over and signed, pt was wheeled down to the lobby and left in a private vehicle.
== END 2022-08-27 16:07 | disposition home or self-care (01) | DRG 379 ==
LOC: ER 17:34 → ED HOLD 08-26 04:11 → SUR 3N 08-26 05:22
PROVIDERS: ADMIT Internal Medicine; ATTEND Family Medicine
PROC: BW211ZZ Computerized Tomography (CT Scan) of Abdomen and Pelvis using Low Osmolar Contrast (ICD-10-PCS; principal; 2022-08-27)
DX: K92.1 Melena (principal); J43.9 Emphysema, unspecified; F17.210 Nicotine dependence, cigarettes, uncomplicated; Z86.73 Personal history of transient ischemic attack (TIA), and cerebral infarction without residual deficits; Z88.0 Allergy status to penicillin; Z88.6 Allergy status to analgesic agent; Z91.041 Radiographic dye allergy status; Z88.5 Allergy status to narcotic agent; Z79.899 Other long term (current) drug therapy; Z28.310 Unvaccinated for COVID-19
CPT/HCPCS: 36415; 71045; 74178; 80048; 80053; 81001; 81003; 82271; 83690; 83735; 83880; 84132; 84484; 85025; 85610; 85730; 86885; 86900; 86901; 87081; 87088; 93005; 94640; 94760; 97116; 97161; 97530; 99285; C9113; G0378; J3490; J7030; J7512; Q0163; Q9967